=== PATIENT | female | born 1940 | race Caucasian/White ===

== ENCOUNTER 2016-11-07 11:21 | Outpatient (CLI) | payer MEDICARE, OTHER | END 2016-11-07 11:22 | disposition home or self-care (01) | DX: G47.30 Sleep apnea, unspecified (principal); R06.83 Snoring; G47.8 Other sleep disorders | CPT/HCPCS: 99215; G0463 ==

== ENCOUNTER 2016-12-31 19:17 | Outpatient (CLI) | payer MEDICARE, OTHER | END 2016-12-31 19:18 | disposition home or self-care (01) | DX: G47.33 Obstructive sleep apnea (adult) (pediatric) (principal); Z68.27 Body mass index [BMI] 27.0-27.9, adult ==

== ENCOUNTER 2017-01-24 11:11 | Outpatient (CLI) | payer MEDICARE, OTHER | END 2017-01-24 11:12 | disposition home or self-care (01) | DX: G47.33 Obstructive sleep apnea (adult) (pediatric) (principal) | CPT/HCPCS: 99214; G0463 ==

== ENCOUNTER 2017-02-13 12:13 | Outpatient (CLI) | payer MEDICARE, OTHER | END 2017-02-13 12:14 | disposition critical access hospital (66) | DX: R10.9 Unspecified abdominal pain (principal); R11.2 Nausea with vomiting, unspecified; R19.7 Diarrhea, unspecified | CPT/HCPCS: A0425; A0427 ==

== ENCOUNTER 2017-02-13 12:42 | Emergency (ER) | payer MEDICARE, OTHER ==
[2017-02-13] MEDS ORDERED: SODIUM CHLORIDE 0.9% 1,000 ML IV ONE (13:06)
[2017-02-13] MEDS ORDERED: LIDOCAINE VISCOUS 2% 15 ML UDC MM STA (15:04)
[2017-02-13] MEDS ORDERED: MAG HYDROX/AL HYDROX/SIMETH 30 ML UDC PO STA (15:04)
[2017-02-13] MEDS ORDERED: FAMOTIDINE 20 MG/50 ML 50 ML IV ONE ×2 (15:04→15:26)
[2017-02-13] MEDS ORDERED: MAG HYDROX/AL HYDROX/SIMETH 30 ML UDC ONE (15:26)
[2017-02-13] MEDS ORDERED: LIDOCAINE VISCOUS 2% 15 ML UDC MM ONE (15:26)
== END 2017-02-13 16:54 | disposition home or self-care (01) ==
DX: R10.12 Left upper quadrant pain (principal); R11.2 Nausea with vomiting, unspecified; R19.7 Diarrhea, unspecified; K57.30 Diverticulosis of large intestine without perforation or abscess without bleeding; D72.829 Elevated white blood cell count, unspecified; R03.0 Elevated blood-pressure reading, without diagnosis of hypertension
CPT/HCPCS: 36415; 74176; 80053; 81003; 83690; 85025; 96361; 96374; 99284; A9270

== ENCOUNTER 2017-02-15 20:35 | Outpatient (CLI) | payer MEDICARE, OTHER | END 2017-02-15 20:36 | disposition home or self-care (01) | DX: G47.33 Obstructive sleep apnea (adult) (pediatric) (principal); G47.61 Periodic limb movement disorder; Z68.27 Body mass index [BMI] 27.0-27.9, adult ==

== ENCOUNTER 2017-03-06 14:16 | Outpatient (CLI) | payer MEDICARE, OTHER | END 2017-03-06 14:17 | disposition home or self-care (01) | DX: G47.33 Obstructive sleep apnea (adult) (pediatric) (principal) | CPT/HCPCS: 99214; G0463 ==

== ENCOUNTER 2017-05-10 10:31 | Outpatient (CLI) | payer MEDICARE, OTHER | END 2017-05-10 10:32 | disposition home or self-care (01) | LOC: SC 10:31 | PROVIDERS: ATTEND Nurse Practitioner Family | DX: G47.33 Obstructive sleep apnea (adult) (pediatric) (principal) | CPT/HCPCS: 99214; G0463; 99212 ==

== ENCOUNTER 2017-08-16 09:51 | Outpatient (CLI) | payer MEDICARE, OTHER | END 2017-08-16 09:52 | disposition home or self-care (01) | LOC: SC 09:51 | PROVIDERS: ATTEND Nurse Practitioner Family | DX: G47.33 Obstructive sleep apnea (adult) (pediatric) (principal) | CPT/HCPCS: 99214; G0463; 99212 ==

== ENCOUNTER 2017-08-28 18:06 | Emergency (ER) | payer MEDICARE, OTHER ==
[2017-08-28] MEDS ORDERED: SODIUM CHLORIDE 0.9% 1,000 ML IV ONE (18:32)
--- NOTE | 2017-08-28 18:42 | ED Physician Documentation ---
History of Present Illness - Stated complaint Stated Complaint: DIZZY - Chief complaint Chief Complaint: Neuro - History obtained from History obtained from: Patient, EMS - History of Present Illness Timing: Today Pain level max: 0 Pain level now: 0 Improved by: rest Worsened by: moving - Additonal information Additional information: Patient states that she has been feeling lightheaded and dizzy today. States this normally resolves with IVF. Denies HENRY, chest pain, shortness of breath, abdominal pain. Review of Systems Ten Systems: 10 systems reviewed and negative Constitutional: denies: Fever, Chills Nose: denies: Rhinorrhea / runny nose, Congestion Throat: denies: Sore throat Cardiac: denies: Chest pain / pressure Respiratory: denies: Cough GI: reports: Nausea. 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 HEENT: None Psych: None Musculoskeletal: None Derm: None - Past Surgical History Past Surgical History: Yes General: Appendectomy HEENT: Tonsil/Adenoidectomy - Present Medications Home Medications: Ambulatory Orders Medication Instructions Recorded Confirmed Naltrexone HCl 3 mg PO DAILY 02/20/15 08/28/17 raNITIdine [Zantac] 150 mg PO BID #60 tablet 02/13/17 08/28/17 - Allergies Allergies/Adverse Reactions: Allergies Allergy/AdvReac Type Severity Reaction Status Date / Time Antihistamines - Alkylamine Allergy Rash Verified 02/20/15 00:40 Penicillins Allergy unknown Verified 02/20/15 00:40 - Social History Does the pt smoke?: No Smoking Status: Never smoker Does the pt drink ETOH?: Yes ETOH Use: Liquor Does the pt have substance abuse?: No - Immunizations Immunizations are current?: Yes - POLST Patient has POLST: Yes PD ED PE NORMAL - Vitals Vital signs reviewed: Yes - General General: Alert and oriented X 3, No acute distress - HEENT HEENT: PERRL, EOMI, Ears normal, Moist mucous membranes, Pharynx benign - Neck Neck: Supple, no meningeal sign, No adenopathy, No JVD - Cardiac Cardiac: RRR - Respiratory Respiratory: No respiratory distress, Clear bilaterally - Abdomen Abdomen: Soft, Non tender, Non distended - Back Back: No spinal TTP - Derm Derm: Warm and dry, No rash - Extremities Extremities: No edema, No calf tenderness / cord, Other (normal gait) - Neuro Neuro: Alert and oriented X 3, 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, No motor deficit, No sensory deficit, Normal speech - Psych Psych: Normal mood, Normal affect Results - Vitals Vitals: Vital Signs - 24 hr 08/28/17 08/28/17 08/28/17 18:12 18:44 19:03 Temperature 36.6 C Heart Rate 94 80 Respiratory 16 16 Rate Blood Pressure 140/70 H 143/64 H O2 Saturation 99 98 08/28/17 22:51 Temperature Heart Rate 78 Respiratory 16 Rate Blood Pressure 136/75 H O2 Saturation 99 Oxygen O2 Source Room air - EKG (time done) 1844 Rate: Rate (enter#) (64) Rhythm: NSR [place]: Normal Intervals: Normal ID QRS: Normal Ischemia: Normal ST segments Computer interpretation: Agree with computer - Labs Labs: Laboratory Tests 08/28/17 08/28/17 08/28/17 18:15 19:08 21:39 WBC 6.9 RBC 4.08 L Hgb 13.1 Hct 38.5 MCV 94.4 MCH 32.1 H MCHC 34.1 RDW 13.1 Plt Count 256 MPV 7.5 L Neut # 4.2 Lymph # 2.0 [place] # 0.5 Eos # 0.1 Baso # 0.1 Absolute Nucleated RBC 0.00 Nucleated RBC % 0.0 Sodium 134 L Potassium 3.8 Chloride 101 Carbon Dioxide 24 Anion Gap 9.0 BUN 15 Creatinine 0.9 Estimated GFR (MDRD) 61 L Glucose 113 H Calcium 9.1 Total Bilirubin 0.4 AST 22 ALT 20 Alkaline Phosphatase 58 Total Protein 6.8 Albumin 4.2 Globulin 2.6 Albumin/Globulin Ratio 1.6 Lipase 33 Urine Color YELLOW Urine Clarity CLEAR Urine pH 6.0 Ur Specific [place] <=1.005 Urine Protein NEGATIVE Urine Glucose (UA) NEGATIVE Urine Ketones NEGATIVE Urine Occult Blood NEGATIVE Urine Nitrite NEGATIVE Urine Bilirubin NEGATIVE Urine Urobilinogen 0.2 (NORMAL) Ur Leukocyte Esterase NEGATIVE Ur Microscopic Review NOT INDICATED Urine Culture Comments NOT INDICATED PD MEDICAL DECISION MAKING - ED course Complexity details: reviewed old records, reviewed results, re-evaluated patient , considered differential, d/w patient, d/w family ED course: Patient is a 76-year-old female who presents to the emergency department with lightheadedness and dizziness today. Mild nausea. Resolved with Zofran. Tolerating p.o. without difficulty. Feels better after IV fluids. Found to have mild hyponatremia as well. This should increase with her IV fluids. She is very well-appearing, nontoxic. Normal neurological exam. No evidence of stroke, tumor, mass. Patient and family counseled regarding signs and symptoms for which I believe and urgent re-evaluation would be necessary. Patient with good understanding of and agreement to plan and is comfortable going home at this time This document was made in part using voice recognition software. While efforts are made to proofread this document, sound alike and grammatical errors may occur. Departure - Departure Disposition: 01 Home, Self Care Clinical Impression: Dehydration, Hyponatremia Condition: Good Instructions: ED Dehydration Follow-Up: Mounika Hughes PA [Primary Care Provider] - Within 1 week Comments: Drink plenty of fluids. Return if you worsen. Discharge Date/Time: 08/28/17 22:52
[2017-08-28 19:22] LABS: BASOPHILS # (AUTO) 0.1 10^3/uL (0.0-0.1); BASOPHILS % (AUTO) 1.8 %; EOSINOPHILS # (AUTO) 0.1 10^3/uL (0.0-0.7); EOSINOPHILS % (AUTO) 1.1 %; HCT - HEMATOCRIT 38.5 % (37.0-47.0); HGB - HEMOGLOBIN 13.1 g/dL (12.0-16.0); LYMPHOCYTES % (AUTO) 28.6 %; MEAN CORPUSCULAR HEMOGLOBIN 32.1 pg (27.0-31.0); MEAN CORPUSCULAR HGB CONC 34.1 g/dL (32.0-36.0); MEAN CORPUSCULAR VOLUME 94.4 fL (81.0-99.0); MEAN PLATELET VOLUME 7.5 fL (7.9-10.8); MONOCYTES # (AUTO) 0.5 10^3/uL (0.0-1.0); MONOCYTES % (AUTO) 7.7 %; NEUTROPHILS # (AUTO) 4.2 10^3/uL (1.5-6.6); NEUTROPHILS % (AUTO) 60.8 %; RED BLOOD COUNT 4.08 10^6/uL (4.20-5.40); RED CELL DISTRIBUTION WIDTH 13.1 % (12.0-15.0); UNCORRECTED WHITE BLOOD COUNT 6.9 x10^3/uL; WHITE BLOOD COUNT 6.9 x10^3/uL (4.8-10.8)
[2017-08-28] MEDS ORDERED: ONDANSETRON ODT 4 MG TABLET TL STA (20:40)
[2017-08-28] MEDS ORDERED: ONDANSETRON ODT 4 MG TABLET ONE (20:53)
[2017-08-28] MEDS ORDERED: ONDANSETRON 4 MG/2 ML VIAL IVP STA (21:42)
[2017-08-28] MEDS ORDERED: ONDANSETRON 4 MG/2 ML VIAL ONE (21:46)
[2017-08-28 21:50] LABS: BILIRUBIN,URINE NEGATIVE (NEGATIVE); UA CHARGE (STRIP ONLY) YES; UR CULTURE IF IND NOT INDICATED
[2017-08-28 21:58] LABS: ALBUMIN/GLOBULIN RATIO 1.6 (1.0-2.2); BILIRUBIN,TOTAL 0.4 mg/dL (0.2-1.0); CALCIUM 9.1 mg/dL (8.5-10.3); CREATININE 0.9 mg/dL (0.4-1.0); POTASSIUM 3.8 mmol/L (3.5-5.0); TOTAL PROTEIN 6.8 g/dL (6.7-8.2)
[2017-08-28 22:51] VITALS: BP 136/75
== END 2017-08-28 22:52 | disposition home or self-care (01) ==
LOC: EDUNIT# → ED 18:06
DX: E86.0 Dehydration (principal); E87.1 Hypo-osmolality and hyponatremia; R94.31 Abnormal electrocardiogram [ECG] [EKG]
CPT/HCPCS: 36415; 80053; 81003; 83690; 85025; 93005; 96361; 96374; 99283; 99284; Q0162; 81001; 87086

== ENCOUNTER 2017-09-29 12:22 | Emergency (ER) | payer MEDICARE, OTHER ==
--- NOTE | 2017-09-29 13:06 | ED Physician Documentation ---
PD HPI URI - Stated complaint Stated Complaint: WEAKNESS - Chief complaint Chief Complaint: Resp - History obtained from History obtained from: Patient - History of Present Illness Timing - onset: How many weeks ago (1) Timing duration: Weeks (1) Timing details: Gradual onset, Still present Associated symptoms: Fever, Nasal congestion, Dry cough, Dyspnea. No: NVD, Bilateral edema Contributing factors: No: Sick contact, Travel, Immunocompromised Similar symptoms before: Diagnosis (pneumohia) Recently seen: Not recently seen Review of Systems Constitutional: reports: Fever, Chills, Myalgias Nose: reports: Rhinorrhea / runny nose, Congestion Throat: denies: Sore throat Respiratory: reports: Dyspnea, Cough. denies: Wheezing GI: reports: Nausea. 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 HEENT: None Psych: None Musculoskeletal: None Derm: None - Past Surgical History Past Surgical History: Yes General: Appendectomy HEENT: Tonsil/Adenoidectomy - Present Medications Home Medications: Ambulatory Orders Medication Instructions Recorded Confirmed Dexamethasone [Decadron] 4 mg PO DAILY #5 tablet 09/29/17 10/01/17 Ondansetron Odt [Zofran] 4 mg TL Q6H PRN #15 tablet 09/29/17 10/01/17 Tramadol HCl 50 mg PO Q6H PRN #15 tablet 09/29/17 10/01/17 - Allergies Allergies/Adverse Reactions: Allergies Allergy/AdvReac Type Severity Reaction Status Date / Time Antihistamines - Alkylamine Allergy Rash Verified 10/01/17 11:40 Penicillins Allergy unknown Verified 10/01/17 11:40 - Social History Does the pt smoke?: No Smoking Status: Never smoker Does the pt drink ETOH?: Yes Does the pt have substance abuse?: No - Immunizations Immunizations are current?: Yes - POLST Patient has POLST: Yes PD ED PE NORMAL - Vitals Vital signs reviewed: Yes - General General: Alert and oriented X 3, No acute distress, Well developed/nourished - HEENT HEENT: Ears normal, Pharynx benign - Neck Neck: Supple, no meningeal sign, No adenopathy - Cardiac Cardiac: RRR, No murmur - Respiratory Respiratory: Clear bilaterally - Abdomen Abdomen: Soft, Non tender - Back Back: No CVA TTP - Derm Derm: Normal color - Extremities Extremities: No deformity, No tenderness to palpate, Normal ROM s pain, No edema , No calf tenderness / cord - Neuro Neuro: Alert and oriented X 3, No motor deficit, Normal speech Results - Vitals Vitals: Oxygen O2 Source Room air - Labs Labs: Laboratory Tests 09/29/17 12:55 Influenza A (Rapid) Negative Influenza B (Rapid) Negative Influenza Types A,B Ag - - Rads (name of study) chest Radiology: Prelim report reviewed (some atelectasis left angle. no else acute. ) PD MEDICAL DECISION MAKING - ED course Complexity details: considered differential (flu like symptoms without looking spetic. ), d/w patient Departure - Departure Disposition: 01 Home, Self Care Clinical Impression: Flu-like symptoms Condition: Stable Record reviewed to determine appropriate education?: Yes Instructions: ED Upper Resp Infec No Abx Tx Follow-Up: Mounika Hughes PA [Primary Care Provider] - Prescriptions: Dexamethasone [Decadron] 4 mg PO DAILY #5 tablet Ondansetron Odt [Zofran] 4 mg TL Q6H PRN #15 tablet PRN Reason: Nausea / Vomiting Tramadol HCl 50 mg PO Q6H PRN #15 tablet PRN Reason: Pain Comments: This sounds like a viral illness, your flu test is negative but is still sounds flulike. I would have you drink lots of fluids. Use Tylenol if needed for fevers or pains. Decadron steroid anti-inflammatory daily for 5 days will help a lot of the symptoms. Ondansetron if needed for nausea. Add tramadol if needed for worse pains and aches. You can continue the antibiotic your pharmacy assistant prescribed. Recheck if not improving over the next few days and return sooner if worse. Discharge Date/Time: 09/29/17 15:16
[2017-09-29] MEDS ORDERED: ONDANSETRON ODT 4 MG TABLET TL STA (13:16)
[2017-09-29] MEDS ORDERED: ACETAMINOPHEN 325 MG TABLET PO STA (13:16)
[2017-09-29] MEDS ORDERED: DEXAMETHASONE 10 MG/ML VIAL PO STA (13:16)
[2017-09-29] MEDS ORDERED: SODIUM CHLORIDE 0.9% 1,000 ML IV ONE (13:23)
[2017-09-29] MEDS ORDERED: ONDANSETRON ODT 4 MG TABLET ONE (13:31)
[2017-09-29] MEDS ORDERED: ACETAMINOPHEN 325 MG TABLET PO ONE (13:31)
[2017-09-29] MEDS ORDERED: DEXAMETHASONE 10 MG/ML VIAL ONE (13:31)
--- NOTE | 2017-09-29 14:05 | XRAY Preliminary Report ---
Exam: XR CHEST 2 VIEW PA/LAT IMPRESSION: LEFT CP angle atelectasis. No other acute disease. [facility] SITE ID: [id number]
--- NOTE | 2017-09-29 14:07 | XRAY Report ---
EXAM: CHEST RADIOGRAPHY EXAM DATE: 09/29/2017 01:57 PM. CLINICAL HISTORY: Cough and dyspnea. COMPARISON: 11/22/2015. TECHNIQUE: 2 views. FINDINGS: Lungs/Pleura: Mild hyperexpansion with flattened diaphragm and coarse lung markings typical of COPD. Localized atelectasis in the left costophrenic angle. No definite acute infiltrate, consolidation, ef fusion, or pneumothorax. Mediastinum: Heart and mediastinal contours are unremarkable. Upper lobe vessels not distended. Other: Degenerative changes. IMPRESSION: LEFT CP angle atelectasis. No other acute disease. [facility] Referring Provider Line: [phone] SITE ID: [id number]
[2017-09-29] MEDS ORDERED: KETOROLAC 60 MG/2 ML VIAL IVP STA (14:30)
[2017-09-29] MEDS ORDERED: KETOROLAC 15 MG/ML VIAL ONE (14:40)
[2017-09-29 15:13] VITALS: BP 125/61
== END 2017-09-29 15:16 | disposition home or self-care (01) ==
LOC: ED 12:22
DX: M79.1 Myalgia (principal)
CPT/HCPCS: 36415; 71020; 87275; 87276; 93005; 96374; 99284; A9270; Q0162

== ENCOUNTER 2017-10-01 11:32 | Emergency (ER) | payer MEDICARE, OTHER ==
[2017-10-01 13:35] LABS: BASOPHILS % (AUTO) 0.8 %; HCT - HEMATOCRIT 38.8 % (37.0-47.0); HGB - HEMOGLOBIN 13.3 g/dL (12.0-16.0); LYMPHOCYTES # (AUTO) 0.9 10^3/uL (1.5-3.5); LYMPHOCYTES % (AUTO) 23.7 %; MEAN CORPUSCULAR HEMOGLOBIN 32.3 pg (27.0-31.0); MEAN CORPUSCULAR HGB CONC 34.4 g/dL (32.0-36.0); MEAN PLATELET VOLUME 7.3 fL (7.9-10.8); MONOCYTES # (AUTO) 0.6 10^3/uL (0.0-1.0); MONOCYTES % (AUTO) 15.8 %; NEUTROPHILS # (AUTO) 2.2 10^3/uL (1.5-6.6); NEUTROPHILS % (AUTO) 59.7 %; NUCLEATED RED BLOOD CELLS AUTO 0.1 /100WBC; RED BLOOD COUNT 4.13 10^6/uL (4.20-5.40); RED CELL DISTRIBUTION WIDTH 12.7 % (12.0-15.0); UNCORRECTED WHITE BLOOD COUNT 3.7 x10^3/uL; WHITE BLOOD COUNT 3.7 x10^3/uL (4.8-10.8)
[2017-10-01 13:43] LABS: BILIRUBIN,TOTAL 0.4 mg/dL (0.2-1.0); POTASSIUM 4.3 mmol/L (3.5-5.0); TOTAL PROTEIN 6.7 g/dL (6.7-8.2)
[2017-10-01 13:44] LABS: ALBUMIN/GLOBULIN RATIO 1.4 (1.0-2.2)
--- NOTE | 2017-10-01 14:16 | ED Physician Documentation ---
History of Present Illness <Ingris Conway - Last Filed: 10/01/17 19:44> <Kj Silva - Last Filed: 10/01/17 21:02> - Stated complaint Stated Complaint: FATIGUE/BODY PAIN/NAUSEA - Chief complaint Chief Complaint: Resp - Additonal information Additional information: 77-year-old female presents to the emergency department with ongoing symptoms of generalized fatigue and nausea. She reports a cough that is nonproductive of sputum. She reports that she has had symptoms for 3 weeks, however Had a period of improvement and then worsened again. She complains of generalized bloating and gas Pain but no localizing abdominal pain.She also complains of a frontal headache.She reports that yesterday she had a fever of 100.4. She has seen her naturopathic doctor twice in the past week and was told that she might have pneumonia and was prescribed an antibiotic. She has been taking this without improvement in her symptoms. She was seen in the emergency department 2 days ago for the symptoms and diagnosed with a viral illness. At that time she had a x-ray of her abdomen, as well as chest. She did not take any of her regular medications today secondary to feeling nauseated and unwell. 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 HEENT: None Psych: None Musculoskeletal: None Derm: None - Past Surgical History Past Surgical History: Yes General: Appendectomy HEENT: Tonsil/Adenoidectomy - Social History Does the pt smoke?: No Smoking Status: Never smoker Does the pt drink ETOH?: Yes Does the pt have substance abuse?: No - Immunizations Immunizations are current?: Yes - POLST Patient has POLST: Yes <Ingris Conway - Last Filed: 10/01/17 19:44> <Kj Silva - Last Filed: 10/01/17 21:02> - Present Medications Home Medications: Ambulatory Orders Medication Instructions Recorded Confirmed Dexamethasone [Decadron] 4 mg PO DAILY #5 tablet 09/29/17 10/01/17 Ondansetron Odt [Zofran] 4 mg TL Q6H PRN #15 tablet 09/29/17 10/01/17 Tramadol HCl 50 mg PO Q6H PRN #15 tablet 09/29/17 10/01/17 - Allergies Allergies/Adverse Reactions: Allergies Allergy/AdvReac Type Severity Reaction Status Date / Time Antihistamines - Alkylamine Allergy Rash Verified 10/01/17 11:40 Penicillins Allergy unknown Verified 10/01/17 11:40 PD ED PE NORMAL - Vitals Vital signs reviewed: Yes - General General: Alert and oriented X 3, No acute distress - HEENT HEENT: PERRL - Neck Neck: Supple, no meningeal sign - Cardiac Cardiac: RRR, No murmur - Respiratory Respiratory: Clear bilaterally - Abdomen Abdomen: Normal bowel sounds, Soft, Other (mild distension, mild discomfort with palpation, no distension) - Derm Derm: Warm and dry, Other (no lower extremity edema ) - Extremities Extremities: No deformity - Neuro Neuro: Alert and oriented X 3 - Psych Psych: Other (affect somewhat flat vs. fatigued) <Ingris Conway - Last Filed: 10/01/17 19:44> Results - EKG (time done) 1308 Rate: Rate (enter#) (77) Rhythm: NSR [place]: Normal Intervals: Normal [place]. No: Prolonged QT QRS: Normal Ischemia: Normal ST segments Other comments: Other comments Compare to prior EKG: Changed from prior EKG (q wave in V2 new from 09/29) 1559 Rate: Rate (enter#) (71) Rhythm: NSR QRS: Normal Ischemia: Normal ST segments Compare to prior EKG: Unchanged from prior EKG - Rads (name of study) Chest x-ray Radiology: Other (Mild bibasilar atelectasis/infiltrate left greater than right) <Ingris Conway - Last Filed: 10/01/17 19:44> - Vitals Vitals: Vital Signs - 24 hr 10/01/17 10/01/17 10/01/17 11:36 12:52 14:02 Temperature 37.1 C 36.8 C Heart Rate 85 71 93 Respiratory 16 14 15 Rate Blood Pressure 131/75 H 148/78 H 116/81 H O2 Saturation 95 95 100 10/01/17 10/01/17 10/01/17 14:20 14:27 16:00 Temperature Heart Rate 89 48 L Respiratory Rate Blood Pressure 140/62 H O2 Saturation 87 L 94 88 L 10/01/17 10/01/17 10/01/17 16:06 16:34 17:14 Temperature Heart Rate 73 68 66 Respiratory 18 20 16 Rate Blood Pressure 125/69 126/71 113/70 O2 Saturation 96 98 95 10/01/17 10/01/17 10/01/17 18:49 19:40 20:54 Temperature Heart Rate 68 66 69 Respiratory 18 14 15 Rate Blood Pressure 124/72 155/76 H 125/67 O2 Saturation 96 92 91 L Oxygen O2 Source Nasal cannula - Labs Labs: Laboratory Tests 10/01/17 10/01/17 10/01/17 11:51 11:51 11:51 WBC 3.7 L RBC 4.13 L Hgb 13.3 Hct 38.8 MCV 94.0 MCH 32.3 H MCHC 34.4 RDW 12.7 Plt Count 213 MPV 7.3 L Neut # 2.2 Lymph # 0.9 L [place] # 0.6 Eos # 0.0 Baso # 0.0 Absolute Nucleated RBC 0.00 Nucleated RBC % 0.1 D-Dimer Sodium 135 Potassium 4.3 Chloride 95 L Carbon Dioxide 28 Anion Gap 12.0 BUN 14 Creatinine 1.0 Estimated GFR (MDRD) 54 L Glucose 89 POC Whole Bld Glucose Lactic Acid Calcium 9.0 Total Bilirubin 0.4 AST 49 H ALT 53 Alkaline Phosphatase 53 Total Creatine Kinase Troponin I B-Natriuretic Peptide Total Protein 6.7 Albumin 3.9 Globulin 2.8 Albumin/Globulin Ratio 1.4 Lipase 32 TSH 1.36 Urine Color Urine Clarity Urine pH Ur Specific [place] Urine Protein Urine Glucose (UA) Urine Ketones Urine Occult Blood Urine Nitrite Urine Bilirubin Urine Urobilinogen Ur Leukocyte Esterase Ur Microscopic Review Urine Culture Comments 10/01/17 10/01/17 10/01/17 11:51 11:51 11:51 WBC RBC Hgb Hct MCV MCH MCHC RDW Plt Count MPV Neut # Lymph # [place] # Eos # Baso # Absolute Nucleated RBC Nucleated RBC % D-Dimer 486.0 H Sodium Potassium Chloride Carbon Dioxide Anion Gap BUN Creatinine Estimated GFR (MDRD) Glucose POC Whole Bld Glucose Lactic Acid Calcium Total Bilirubin AST ALT Alkaline Phosphatase Total Creatine Kinase 125 Troponin I B-Natriuretic Peptide 56 Total Protein Albumin Globulin Albumin/Globulin Ratio Lipase TSH Urine Color Urine Clarity Urine pH Ur Specific [place] Urine Protein Urine Glucose (UA) Urine Ketones Urine Occult Blood Urine Nitrite Urine Bilirubin Urine Urobilinogen Ur Leukocyte Esterase Ur Microscopic Review Urine Culture Comments 10/01/17 10/01/17 10/01/17 13:24 13:24 13:51 WBC RBC Hgb Hct MCV MCH MCHC RDW Plt Count MPV Neut # Lymph # [place] # Eos # Baso # Absolute Nucleated RBC Nucleated RBC % D-Dimer Sodium Potassium Chloride Carbon Dioxide Anion Gap BUN Creatinine Estimated GFR (MDRD) Glucose POC Whole Bld Glucose Lactic Acid 0.8 Calcium Total Bilirubin AST ALT Alkaline Phosphatase Total Creatine Kinase Troponin I < 0.04 B-Natriuretic Peptide Total Protein Albumin Globulin Albumin/Globulin Ratio Lipase TSH Urine Color YELLOW Urine Clarity CLEAR Urine pH 6.0 Ur Specific [place] 1.015 Urine Protein NEGATIVE Urine Glucose (UA) NEGATIVE Urine Ketones NEGATIVE Urine Occult Blood NEGATIVE Urine Nitrite NEGATIVE Urine Bilirubin NEGATIVE Urine Urobilinogen 0.2 (NORMAL) Ur Leukocyte Esterase NEGATIVE Ur Microscopic Review NOT INDICATED Urine Culture Comments NOT INDICATED 10/01/17 10/01/17 16:04 16:19 WBC RBC Hgb Hct MCV MCH MCHC RDW Plt Count MPV Neut # Lymph # [place] # Eos # Baso # Absolute Nucleated RBC Nucleated RBC % D-Dimer Sodium Potassium Chloride Carbon Dioxide Anion Gap BUN Creatinine Estimated GFR (MDRD) Glucose POC Whole Bld Glucose 108 H Lactic Acid Calcium Total Bilirubin AST ALT Alkaline Phosphatase Total Creatine Kinase Troponin I < 0.04 B-Natriuretic Peptide Total Protein Albumin Globulin Albumin/Globulin Ratio Lipase TSH Urine Color Urine Clarity Urine pH Ur Specific [place] Urine Protein Urine Glucose (UA) Urine Ketones Urine Occult Blood Urine Nitrite Urine Bilirubin Urine Urobilinogen Ur Leukocyte Esterase Ur Microscopic Review Urine Culture Comments PD MEDICAL DECISION MAKING <Ingris Conway - Last Filed: 10/01/17 19:44> - ED course Complexity details: reviewed old records, reviewed results, considered differential, d/w patient, d/w family <jK Silva - Last Filed: 10/01/17 21:02> - ED course ED course: 77-year-old female with vague complaints of generalized fatigue and cough and nausea. Her abdominal exam is benign. Laboratory workup is unrevealing including a TSH. While in the emergency department patient required 2 L Nasal cannula. A d-dimer and a BNP were ordered. D-dimer was elevated and a CT of the chest was performed. 1602 Called to patient's bedside upon return from x-ray patient has developed nausea and chest discomfort. On arrival to the mount room patient Has decreased mental status arousable with tactile stimulation, diaphoretic. Patient is heart rate decreased to 40s.Blood pressure not obtained until patient heart rate had improved, she had a carotid pulse but not radial pulse when she was bradycardic.She reports that she has actually had chest discomfort intermittently for the last 2 days, is unable to describe how long it lasts.Had not previously communicated this to me. A repeat EKG was obtained and unchanged from earlier today. Q-wave in V1 and V2. [address] of the chest reveals no pulmonary embolus aortic aneurysm or aortic dissection. Borderline cardiac cardiomegaly and coronary artery atherosclerosis, no CHF. 184 Discussed patient's case with Dr. Strong at [facility] cardiology. I discussed with him patient's event of Chest pain, nausea, diaphoresis with low heart rate. He feels that patient may be transferred to their facility or alternatively could have telemetry for 24 hours, and stress test for her chest pain given that she has no EKG changes and Has 2 negative troponin. He recommended discussing with hospitalist at this institution their comfort level and notifying him of outcome. 191 Discussed patient's change in V2 to q wave from 2 days ago. Accepts transfer, does not recommend heparin at this time, recommends discussion with hospitalist. Discussed with Dr. Roberson who accepts patient. Son and patient updated to plan of care. (Ingris Conway) 77-year-old female whose care is turned over to me at the end of Dr. Conway's shift for completion of transfer agreement. The family has made a request that the patient be transferred to [place]. I have gone in and examined the patient and found that she does have bibasilar rhonchi on exam and oxygen saturation in the low 90s at rest. She does have a history consistent with recurrent chest pain radiating to her neck and shortness of breath associated. Today in the emergency department she had a near syncopal episode and transfer is sought. Dr. Jordan has graciously accepted the patient at [facility] in [place]. ( Kj Silva) Departure <Ingris Conway - Last Filed: 10/01/17 19:44> <Kj Silva - Last Filed: 10/01/17 21:02> - Departure Disposition: 02 Transfer Acute Care Hosp Clinical Impression: Near syncope Chest pain Qualifiers: Chest pain type: unspecified Qualified Code(s): R07.9 - Chest pain, unspecified
[2017-10-01] MEDS ORDERED: ONDANSETRON 4 MG/2 ML VIAL IVP STA ×2 (14:53→21:09)
[2017-10-01] MEDS ORDERED: SODIUM CHLORIDE 0.9% 500 ML IV ONE (14:53)
[2017-10-01 15:06] LABS: BILIRUBIN,URINE NEGATIVE (NEGATIVE)
[2017-10-01 15:08] LABS: UA CHARGE (STRIP ONLY) YES; UR CULTURE IF IND NOT INDICATED
[2017-10-01] MEDS ORDERED: ONDANSETRON 4 MG/2 ML VIAL ONE ×2 (15:41→21:17)
[2017-10-01] MEDS ORDERED: KETOROLAC 30 MG/ML VIAL IVP STA (15:49)
--- NOTE | 2017-10-01 16:08 | XRAY Preliminary Report ---
Exam: XR CHEST 2 VIEW PA/LAT IMPRESSION: Mild bibasilar atelectasis/infiltrate, left greater than right. [facility] SITE ID: [id number]
--- NOTE | 2017-10-01 16:10 | XRAY Report ---
EXAM: CHEST RADIOGRAPHY EXAM DATE: 10/01/2017 03:55 PM. CLINICAL HISTORY: Cough. Chest pain and shortness of breath. COMPARISON: 09/29/2017. TECHNIQUE: 2 views. FINDINGS: Lungs/Pleura: Streaky bibasilar opacities, left greater than right. No pleural effusion. No pneumotho rax. Normal volumes. Mediastinum: Heart and mediastinal contours are unremarkable. Other: No compression fractures. IMPRESSION: Mild bibasilar atelectasis/infiltrate, left greater than right. [facility] Referring Provider Line: [phone] SITE ID: [id number]
[2017-10-01] MEDS ORDERED: KETOROLAC 15 MG/ML VIAL ONE (16:31)
[2017-10-01] MEDS ORDERED: IOPAMIDOL-300 100 ML VIAL ONE (17:16)
[2017-10-01] MEDS ORDERED: IOPAMIDOL-300 100 ML VIAL IVP ONE ×2 (17:45)
--- NOTE | 2017-10-01 18:11 | CT Preliminary Report ---
Exam: CT CHEST ANGIO (PE) IMPRESSION: 1. No evidence of pulmonary embolus, aortic aneurysm or aortic dissection. 2. Bilateral lower lobe scar/atelectasis. No acute consolidation. No vascular congestion. 3. Borderline cardiomegaly. Coronary artery atherosclerosis. [facility] SITE ID: [id number]
--- NOTE | 2017-10-01 18:28 | CT Report ---
EXAM: CT ANGIOGRAM CHEST EXAM DATE: 10/01/2017 05:45 PM. CLINICAL HISTORY: Chest pain, cough, elevated D-dimer. COMPARISON: 10/01/2017. 09/29/2017. TECHNIQUE: Routine helical imaging was performed through the chest in the pulmonary arterial phase. I V Contrast: 100 mL of Isovue-300. Reconstructions: Coronal 3-D MIP reconstructions.Sagittal and coron al. In accordance with CT protocol optimization, one or more of the following dose reduction techniques w ere utilized for this exam: automated exposure control, adjustment of mA and/or KV based on patient s ize, or use of iterative reconstructive technique. FINDINGS: Pulmonary Arteries: Diagnostic quality: Adequate through the segmental arteries. No evidence for acute or chronic pulmona ry emboli. Lungs/Pleura: Right middle and right lower lobe and bilateral lower lobe scar/atelectasis. Mild bilat eral lower lobe bronchial dilatation. No vascular congestion. No endobronchial obstruction. No parenc hymal cavities. Mediastinum: Included portions of the thyroid gland are unremarkable. Subcentimeter mediastinal and h ilar lymph nodes are seen, the largest measuring 8-9 mm in short axis dimension. Heart size is upper normal. Coronary artery calcifications are seen. Small hiatal hernia. Trace paracardial effusion. No evidence for left atrial appendage thrombus. Thoracic Aorta: Normal caliber thoracic aorta. No dissection or aneurysm. Upper Abdomen: Included portions of the liver, gallbladder, pancreas, spleen adrenals and left kidney are unremarkable. Other: Degenerative changes of the thoracic spine. No acute osseous abnormalities are identified. IMPRESSION: 1. No evidence of pulmonary embolus, aortic aneurysm or aortic dissection. 2. Bilateral lower lobe scar/atelectasis. No acute consolidation. No vascular congestion. 3. Borderline cardiomegaly. Coronary artery atherosclerosis. [facility] Referring Provider Line: [phone] SITE ID: [id number]
[2017-10-01] MEDS ORDERED: ASPIRIN 325 MG TABLET PO STA (19:08)
[2017-10-01] MEDS ORDERED: ASPIRIN 325 MG TABLET PO ONE (19:33)
[2017-10-01 20:55] VITALS: BP 125/67
== END 2017-10-01 22:07 | disposition short-term general hospital (02) ==
LOC: ED 11:32
DX: R55 Syncope and collapse (principal); R07.9 Chest pain, unspecified; K21.9 Gastro-esophageal reflux disease without esophagitis
CPT/HCPCS: 36415; 71020; 71275; 80053; 81003; 82550; 83605; 83690; 83880; 84443; 84484; 85025; 85379; 93005; 96361; 96374; 96375; 96376; 99285; A9270; Q9967; 81001; 87086

== ENCOUNTER 2017-10-01 21:55 | Outpatient (CLI) | payer MEDICARE, OTHER | END 2017-10-01 21:56 | disposition short-term general hospital (02) | LOC: EMS 21:55 | PROVIDERS: ATTEND Surgery | DX: R07.9 Chest pain, unspecified (principal); R55 Syncope and collapse | CPT/HCPCS: A0170; A0425; A0426 ==

== ENCOUNTER 2017-10-18 19:07 | Emergency (ER) | payer MEDICARE, OTHER ==
[2017-10-18] MEDS ORDERED: SODIUM CHLORIDE 0.9% 1,000 ML IV ONE (19:55)
[2017-10-18] MEDS ORDERED: ALBUTEROL NEB 2.5 MG/3 ML INH STA (19:59)
--- NOTE | 2017-10-18 20:02 | ED Physician Documentation ---
History of Present Illness - Stated complaint Stated Complaint: SOA/BODY ACHES - Chief complaint Chief Complaint: General - History obtained from History obtained from: Patient, Family - History of Present Illness Timing: Other (77-year-old woman who is usually relatively healthy was ill at the beginning of the month with what turned out to be influenza. She had a few visits here for nonspecific symptoms. During that time it looks like her EKG suddenly changed and there was concern for cardiac etiology plus she had a syncopal episode. She was transferred to [place] where according to her she did have a positive flu test although the flu test here was negative and she had a negative stress test. She was discharged on Tamiflu and later put on azithromycin by her primary care physician. She is done with that and was slowly getting better but over the last 24 hours is gotten worse again with shortness of breath, minimal nonproductive cough, runny nose, and severe body aches. She has not had any measured fevers.) Review of Systems Constitutional: reports: Chills, Myalgias. denies: Fever Ears: denies: Ear pain Nose: reports: Rhinorrhea / runny nose. 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 : None HEENT: None Psych: None Musculoskeletal: None Derm: None - Past Surgical History Past Surgical History: Yes General: Appendectomy HEENT: Tonsil/Adenoidectomy - Present Medications Home Medications: Ambulatory Orders Medication Instructions Recorded Confirmed Albuterol Sulfate [Proventil Hfa 1 - 2 puffs IH Q4H PRN #1 10/18/17 Inhaler] hfa.aer.ad - Allergies Allergies/Adverse Reactions: Allergies Allergy/AdvReac Type Severity Reaction Status Date / Time Antihistamines - Alkylamine Allergy Rash Verified 10/18/17 19:16 Penicillins Allergy unknown Verified 10/18/17 19:16 oxycodone AdvReac Respiratory Verified 10/18/17 19:20 propofol AdvReac Dizziness Verified 10/18/17 19:21 - Social History Does the pt smoke?: No Smoking Status: Never smoker Does the pt drink ETOH?: Yes Does the pt have substance abuse?: No - Immunizations Immunizations are current?: Yes - POLST Patient has POLST: Yes PD ED PE NORMAL - Vitals Vital signs reviewed: Yes - General General: Alert and oriented X 3, No acute distress - HEENT HEENT: PERRL, EOMI, Ears normal, Moist mucous membranes, Pharynx benign - Neck Neck: Supple, no meningeal sign, No bony TTP - Cardiac Cardiac: RRR, No murmur - Respiratory Respiratory: Other (Mild rhonchi at both bases, nonlabored) - Abdomen Abdomen: Soft, Non tender - Derm Derm: Normal color, Warm and dry - Extremities Extremities: No edema, No calf tenderness / cord - Neuro Neuro: Alert and oriented X 3, Normal speech - Psych Psych: Normal mood, Normal affect Results - Vitals Vitals: Vital Signs - 24 hr 10/18/17 10/18/17 10/18/17 19:13 20:27 20:29 Temperature 36.4 C L Heart Rate 69 64 71 Respiratory 20 11 L 16 Rate Blood Pressure 151/92 H 146/75 H O2 Saturation 100 99 10/18/17 21:25 Temperature Heart Rate 84 Respiratory 12 Rate Blood Pressure 131/72 H O2 Saturation 97 Oxygen O2 Source Room air - EKG (time done) 1916 Rate: Rate (enter#) (68) Rhythm: NSR [place]: Normal Intervals: Normal SC QRS: Normal Ischemia: Normal ST segments Computer interpretation: Agree with computer - Labs Labs: Laboratory Tests 10/18/17 10/18/17 10/18/17 20:10 20:10 20:10 WBC 5.6 RBC 4.03 L Hgb 12.7 Hct 37.9 MCV 94.1 MCH 31.6 H MCHC 33.6 RDW 12.7 Plt Count 303 MPV 7.0 L Neut # 3.7 Lymph # 1.4 L [place] # 0.5 Eos # 0.0 Baso # 0.1 Absolute Nucleated RBC 0.00 Nucleated RBC % 0.0 Sodium 137 Potassium 4.7 Chloride 101 Carbon Dioxide 25 Anion Gap 11.0 BUN 15 Creatinine 0.9 Estimated GFR (MDRD) 61 L Glucose 96 Calcium 9.6 Total Bilirubin 0.6 AST 27 ALT 26 Alkaline Phosphatase 53 Troponin I < 0.04 Total Protein 7.2 Albumin 3.9 Globulin 3.3 Albumin/Globulin Ratio 1.2 Lipase 38 Influenza A (Rapid) Influenza B (Rapid) Influenza Types A,B Ag 10/18/17 20:10 WBC RBC Hgb Hct MCV MCH MCHC RDW Plt Count MPV Neut # Lymph # [place] # Eos # Baso # Absolute Nucleated RBC Nucleated RBC % Sodium Potassium Chloride Carbon Dioxide Anion Gap BUN Creatinine Estimated GFR (MDRD) Glucose Calcium Total Bilirubin AST ALT Alkaline Phosphatase Troponin I Total Protein Albumin Globulin Albumin/Globulin Ratio Lipase Influenza A (Rapid) Negative Influenza B (Rapid) Negative Influenza Types A,B Ag - PD MEDICAL DECISION MAKING - ED course ED course: 77-year-old woman ill earlier this month with influenza presents with body aches , resolved diarrhea, dizziness. She responded well to IV fluids and albuterol here. Her workup was negative. And a long talk with her she has had a lot of recurrent symptoms which are attributed to Mnire's. She says she frequently has episodes of vertigo that are followed by feeling panicky and then she blacks out. She admits that she feels much better when paramedics are summoned even if they do not really do any specific intervention. And somebody at some point he given her Valium for this and when taking a Valium for the symptoms she feels like it works within seconds. I discussed with her that medically it takes Valium some time to work and the fact that she feels like it works within seconds corroborates that she is having panic attacks that respond to feeling like she is in control of her illness and this empowered her. Departure - Departure Disposition: 01 Home, Self Care Clinical Impression: Flu-like symptoms Condition: Good Record reviewed to determine appropriate education?: Yes Instructions: ED Viral Syndrome Follow-Up: Mounika Hughes PA [Primary Care Provider] - Prescriptions: Albuterol Sulfate [Proventil Hfa Inhaler] 1 - 2 puffs IH Q4H PRN #1 hfa.[email or web address] PRN Reason: Cough Comments: Call your doctor to arrange a follow-up appointment, make the next available appointment. In the interim, return anytime if worse or if new symptoms develop. Your blood pressure was elevated today on check into the emergency department. This does not mean that you have hypertension, it is a common phenomenon to come to the emergency department and have elevated blood pressure. I recommend that you see your primary care physician within the week to have it rechecked when you are feeling better. Discharge Date/Time: 10/18/17 21:45
[2017-10-18 20:21] LABS: BASOPHILS # (AUTO) 0.1 10^3/uL (0.0-0.1); BASOPHILS % (AUTO) 0.9 %; EOSINOPHILS % (AUTO) 0.6 %; HCT - HEMATOCRIT 37.9 % (37.0-47.0); HGB - HEMOGLOBIN 12.7 g/dL (12.0-16.0); LYMPHOCYTES # (AUTO) 1.4 10^3/uL (1.5-3.5); LYMPHOCYTES % (AUTO) 24.7 %; MEAN CORPUSCULAR HEMOGLOBIN 31.6 pg (27.0-31.0); MEAN CORPUSCULAR HGB CONC 33.6 g/dL (32.0-36.0); MEAN CORPUSCULAR VOLUME 94.1 fL (81.0-99.0); MONOCYTES # (AUTO) 0.5 10^3/uL (0.0-1.0); MONOCYTES % (AUTO) 8.1 %; NEUTROPHILS # (AUTO) 3.7 10^3/uL (1.5-6.6); NEUTROPHILS % (AUTO) 65.7 %; RED BLOOD COUNT 4.03 10^6/uL (4.20-5.40); RED CELL DISTRIBUTION WIDTH 12.7 % (12.0-15.0); UNCORRECTED WHITE BLOOD COUNT 5.6 x10^3/uL; WHITE BLOOD COUNT 5.6 x10^3/uL (4.8-10.8)
[2017-10-18 20:34] LABS: ALBUMIN/GLOBULIN RATIO 1.2 (1.0-2.2); BILIRUBIN,TOTAL 0.6 mg/dL (0.2-1.0); CALCIUM 9.6 mg/dL (8.5-10.3); CREATININE 0.9 mg/dL (0.4-1.0); POTASSIUM 4.7 mmol/L (3.5-5.0); TOTAL PROTEIN 7.2 g/dL (6.7-8.2)
--- NOTE | 2017-10-18 20:51 | XRAY Preliminary Report ---
Exam: XR CHEST 2 VIEW PA/LAT IMPRESSION: Normal 2-view chest radiography. [facility] SITE ID: [id number]
--- NOTE | 2017-10-18 20:53 | XRAY Report ---
EXAM: CHEST RADIOGRAPHY EXAM DATE: 10/18/2017 08:22 PM. CLINICAL HISTORY: Dyspnea. Cough. COMPARISON: 10/01/2017. TECHNIQUE: 2 views. FINDINGS: Lungs/Pleura: No focal opacities evident. Clearing of previous left base infiltrate. No pleural effus ion. No pneumothorax. Normal volumes. Mediastinum: Heart and mediastinal contours are unremarkable. Other: No compression fractures. IMPRESSION: Normal 2-view chest radiography. [facility] Referring Provider Line: [phone] SITE ID: [id number]
[2017-10-18 21:26] VITALS: BP 131/72
== END 2017-10-18 21:45 | disposition home or self-care (01) ==
LOC: ED 19:07
DX: R05 Cough (principal); R06.02 Shortness of breath; J34.89 Other specified disorders of nose and nasal sinuses; H81.09 Meniere's disease, unspecified ear; K21.9 Gastro-esophageal reflux disease without esophagitis; R03.0 Elevated blood-pressure reading, without diagnosis of hypertension
CPT/HCPCS: 36415; 71020; 80053; 83690; 84484; 85025; 87275; 87276; 93005; 94640; 96360; 99283; J7613

== ENCOUNTER 2017-11-15 13:03 | Outpatient (CLI) | payer MEDICARE, OTHER | END 2017-11-15 13:04 | disposition home or self-care (01) | LOC: SC 13:03 | PROVIDERS: ATTEND Nurse Practitioner Family | DX: G47.33 Obstructive sleep apnea (adult) (pediatric) (principal); G47.00 Insomnia, unspecified | CPT/HCPCS: 99214; G0463; 99212 ==

== ENCOUNTER 2018-01-17 13:23 | Outpatient (CLI) | payer MEDICARE, OTHER | END 2018-01-17 13:24 | disposition home or self-care (01) | LOC: SC 13:23 | PROVIDERS: ATTEND Nurse Practitioner Family | DX: G47.33 Obstructive sleep apnea (adult) (pediatric) (principal) | CPT/HCPCS: 99214; G0463; 99212 ==

== ENCOUNTER 2018-04-13 08:47 | Outpatient (CLI) | payer MEDICARE, OTHER ==
--- NOTE | 2018-04-13 13:54 | CT Report ---
Procedure Date: 04/13/2018 Accession Number: [id number] / [id number] Procedure: CT - Chest W/O CPT Code: FULL RESULT: EXAM: Chest W/O DATE: 04/13/2018 10:08 AM CLINICAL HISTORY: ASTHMA, SLEEP APNEA COMPARISON: 10/01/2017 TECHNIQUE: Routine helical CT imaging was performed through the chest. IV contrast: None. Reconstructions: Coronal and sagittal. In accordance with CT protocol optimization, one or more of the following dose reduction techniques were utilized for this exam: automated exposure control, adjustment of mA and/or KV based on patient size, or use of iterative reconstructive technique. FINDINGS: Lungs/Pleura: No nodules, bronchial thickening, consolidation, or edema. Pulmonary vasculature is normal. No pericardial or pleural effusion. No pneumothorax. Mediastinum: Normal. No adenopathy or masses. The heart and great vessels are normal. Bones: Unremarkable. Visualized Abdomen: Unremarkable. Other: None. IMPRESSION: Normal chest CT. [facility]
[2018-04-13] MEDS ORDERED: ALBUTEROL NEB 2.5 MG/3 ML INH PRN (16:30)
== END 2018-04-13 08:48 | disposition home or self-care (01) ==
LOC: DI 08:47
PROVIDERS: ATTEND Internal Medicine
DX: J45.909 Unspecified asthma, uncomplicated (principal); G47.30 Sleep apnea, unspecified
CPT/HCPCS: 71250; 94060; 94729

== ENCOUNTER 2018-06-06 13:17 | Outpatient (CLI) | payer MEDICARE, OTHER | END 2018-06-06 13:18 | disposition home or self-care (01) | LOC: SC 13:17 | PROVIDERS: ATTEND Nurse Practitioner Family | DX: G47.33 Obstructive sleep apnea (adult) (pediatric) (principal) | CPT/HCPCS: 99214; G0463; 99212 ==

== ENCOUNTER 2018-07-05 11:16 | Outpatient (CLI) | payer MEDICARE, OTHER | END 2018-07-05 11:17 | disposition home or self-care (01) | LOC: SC 11:16 | PROVIDERS: ATTEND Nurse Practitioner Family | DX: G47.33 Obstructive sleep apnea (adult) (pediatric) (principal) | CPT/HCPCS: 99214; G0463; 99212 ==

== ENCOUNTER 2018-09-13 10:14 | Outpatient (CLI) | payer MEDICARE, OTHER | END 2018-09-13 10:15 | disposition home or self-care (01) | LOC: SC 10:14 | PROVIDERS: ATTEND Nurse Practitioner Family | DX: G47.33 Obstructive sleep apnea (adult) (pediatric) (principal) | CPT/HCPCS: 99214; G0463; 99212 ==

== ENCOUNTER 2018-10-15 11:00 | Outpatient (CLI) | payer MEDICARE, OTHER | END 2018-10-15 11:01 | disposition home or self-care (01) | LOC: SC 11:00 | PROVIDERS: ATTEND Nurse Practitioner Family | DX: G47.33 Obstructive sleep apnea (adult) (pediatric) (principal) | CPT/HCPCS: 99214; G0463; 99212 ==

== ENCOUNTER 2019-01-11 13:42 | Outpatient (CLI) | payer MEDICARE, OTHER ==
[2019-01-11] MEDS ORDERED: IOVERSOL 320 50 ML VIAL ONE (13:54)
[2019-01-11] MEDS ORDERED: IOPAMIDOL-300 100 ML VIAL ONE (13:54)
[2019-01-11] MEDS ORDERED: IOPAMIDOL-300 100 ML VIAL IVP ONE (15:24)
[2019-01-11] MEDS ORDERED: IOVERSOL 320 50 ML VIAL PO ONE (15:25)
--- NOTE | 2019-01-11 16:01 | CT Report ---
Reason: UNSPECIFIED ABDOMINAL PAIN Procedure Date: 01/11/2019 Accession Number: [id number] / [id number] Procedure: CT - Abdomen/Pelvis W CPT Code: FULL RESULT: EXAM: CT ABDOMEN AND PELVIS EXAM DATE: 01/11/2019 02:59 PM. CLINICAL HISTORY: Unspecified abdominal pain. COMPARISONS: ABDOMEN/PELVIS W/O 02/13/2017 1:30 PM. TECHNIQUE: Routine helical CT imaging was performed through the abdomen and pelvis. IV contrast: ISOVUE 300 100mL. Enteric contrast: Yes. Reconstructions: Coronal and sagittal. In accordance with CT protocol optimization, one or more of the following dose reduction techniques were utilized for this exam: automated exposure control, adjustment of mA and/or KV based on patient size, or use of iterative reconstructive technique. FINDINGS: Lung Bases: Unremarkable. Liver: Normal. No masses. Gallbladder/Bile Ducts: Unremarkable. Spleen: Normal. Pancreas: Normal. Adrenal Glands: Normal. Kidneys: Normal. No masses or hydronephrosis. Peritoneal Cavity/Bowel: Normal. No free fluid, free air or adenopathy. No masses or acute inflammatory process. The appendix is not specifically visualized. Pelvic Organs: Normal. The bladder and visualized pelvic organs are within normal limits. Vasculature: No aneurysms or other significant abnormality. Bones: No significant abnormality. Other: Stable small hiatal hernia. IMPRESSION: Stable small hiatal hernia, otherwise normal abdominal pelvic CT. [facility]
--- NOTE | 2019-01-11 16:07 | CT Report ---
Reason: UNSPECIFIED ABDOMINAL PAIN Procedure Date: 01/11/2019 Accession Number: [id number] / [id number] Procedure: CT - CHEST W CPT Code: FULL RESULT: EXAM: CT CHEST EXAM DATE: 01/11/2019 02:59 PM. CLINICAL HISTORY: Unspecified abdominal pain. COMPARISONS: Chest with 01/11/2019 2:59 PM. Chest without contrast 04/13/2018 10:03 AM. TECHNIQUE: Routine helical CT imaging was performed through the chest. IV contrast: None. Reconstructions: Coronal and sagittal. In accordance with CT protocol optimization, one or more of the following dose reduction techniques were utilized for this exam: automated exposure control, adjustment of mA and/or KV based on patient size, or use of iterative reconstructive technique. FINDINGS: Lungs/Pleura: No nodules, bronchial thickening, consolidation, or edema. Pulmonary vasculature is normal. No pericardial or pleural effusion. No pneumothorax. Mediastinum: Moderate coronary artery calcium is noted of the left anterior descending coronary artery. No adenopathy or masses. The heart and great vessels are otherwise normal. Bones: Unremarkable. Visualized Abdomen: Unremarkable. Other: Small hiatal hernia. IMPRESSION: 1. Moderate coronary artery calcium of the left anterior descending coronary artery. 2. Small hiatal hernia. [facility]
== END 2019-01-11 13:43 | disposition home or self-care (01) ==
LOC: DI 13:42
PROVIDERS: ATTEND Physician Assistant
DX: R10.9 Unspecified abdominal pain (principal); K44.9 Diaphragmatic hernia without obstruction or gangrene; I25.10 Atherosclerotic heart disease of native coronary artery without angina pectoris
CPT/HCPCS: 36415; 71260; 74177; 82565; Q9967

== ENCOUNTER 2019-01-24 10:12 | Outpatient (CLI) | payer MEDICARE, OTHER ==
--- NOTE | 2019-01-24 11:26 | Mammography Report ---
Reason: UNSPECIFIED LUMP IN THE RIGHT BREAST, UPPER OUTER Procedure Date: 01/24/2019 Accession Number: [id number] / [id number] Procedure: [facility] - Diagnostic Dig Bilat CPT Code: FULL RESULT: EXAM: Diagnostic Dig Bilat DATE: 01/24/2019 10:59 AM CLINICAL HISTORY: Diagnostic examination. Palpable lump in the right breast upper outer quadrant. No reported risk factors. TECHNIQUE: Bilateral CC and MLO views as well as a right ML view were obtained. COMPARISON: 08/03/2015 and 07/20/2015. FINDINGS: The breasts demonstrate heterogeneously dense fibroglandular parenchyma bilaterally. There are bilateral typically benign coarse calcifications. No suspicious mass, architectural distortion or calcifications are seen. IMPRESSION: Benign findings RECOMMENDATION: Recommend routine annual Screening mammography unless otherwise clinically indicated. BIRADS CATEGORY 2: Benign findings STANDARD QUALIFYING STATEMENTS: 1. This examination was not reviewed with the aid of Computer-Aided Detection (CAD). 2. A negative or benign imaging report should not delay biopsy if clinically suspicious findings are present. Consider surgical consultation if warrented. More than 5% of cancers are not identified by imaging. 3. Dense breasts may obscure an underlying neoplasm. 4. This examination was reviewed with the aid of 3D imaging (tomography).
== END 2019-01-24 10:13 | disposition home or self-care (01) ==
LOC: DI 10:12
PROVIDERS: ATTEND Physician Assistant
DX: N63.11 Unspecified lump in the right breast, upper outer quadrant (principal)
CPT/HCPCS: 77066

== ENCOUNTER 2019-07-08 13:18 | Outpatient (CLI) | payer MEDICARE, OTHER ==
--- NOTE | 2019-07-09 09:05 | CT Report ---
Reason: HEADACHE Procedure Date: 07/08/2019 Accession Number: [id number] / [id number] Procedure: CT - HEAD WO CPT Code: FULL RESULT: EXAM: CT HEAD EXAM DATE: 07/08/2019 02:17 PM. CLINICAL HISTORY: HEADACHE. COMPARISON: BRAIN W/O 04/24/2013 8:55 AM. TECHNIQUE: Multiaxial CT images were obtained from the foramen magnum to the vertex. Reformats: Sagittal and coronal. IV contrast: None. In accordance with CT protocol optimization, one or more of the following dose reduction techniques were utilized for this exam: automated exposure control, adjustment of mA and/or KV based on patient size, or use of iterative reconstructive technique. FINDINGS: Parenchyma: No intraparenchymal hemorrhage. No evidence of mass, midline shift, or CT findings of infarction. Richard-white differentiation is distinct. Extraaxial Spaces: Normal for age. No subdural or epidural collections identified. Ventricles: Normal in size and position. Sinuses and Orbits: Right sphenoid sinus retention cyst. Bones: No evidence of fracture or calvarial defect. Other: Clear mastoid air cells and middle ear cavities. IMPRESSION: Normal head CT except for sphenoid sinus retention cyst. [facility]
== END 2019-07-08 13:19 | disposition home or self-care (01) ==
LOC: DI 13:18
PROVIDERS: ATTEND Physician Assistant
DX: J34.1 Cyst and mucocele of nose and nasal sinus (principal); R51 Headache
CPT/HCPCS: 70450

== ENCOUNTER 2019-10-29 10:50 | Outpatient (CLI) | payer MEDICARE, OTHER ==
[2019-10-29 11:44] VITALS: BP 112/68
--- NOTE | 2019-10-29 11:44 | SLEEP CARE CONSULTATION ---
Information from patient questionnaire entered by Demetria Alvarado. I have reviewed and concur with the information entered by Demetria Alvarado. This document represents the service I personally performed and the decisions made by me, Chastity Pritchett, RN, MSN, [employer]. History of Present Illness Previous diagnosis: Mild, Obstructive Sleep Apnea-Hypopnea Syndrome AHI: 9.8 Reason for follow up: annual Equipment type: CPAP Equipment obtained from: [facility] Mask style: Nasal (Air Fit N20) Mask brand: Resmed Backup mask available: Yes Last cushion change: 3 weeks ago Prior sleep studies: Yes CPAP Compliance Data - Data Reviewed with Patient Average duration of nightly device use: 5H 18M Compliance rate %: 61 (use reduced due to skull pain , no etiology except son diagnosed with cancer) Current pressure setting (cmH2O): 8 Humidity settin Heated hose settin Average residual AHI: 2.5 Subjective Patient concerns: reports: condensation in mask/hose (few times a week), dry mouth, nose, throat (a few times a week). denies: aerophagia, mask discomfort, air blowing in eyes, mask leak noise, nasal congestion, epistaxis Observed to snore while using device: No (single sleeps alone) Current pressure setting perceived as: comfortable On therapy, patient: reports: sleeping better, awakening more refreshed, being more awake and alert during the day, more rested overall. denies: drowsiness while driving Initial [place] Sleepiness Scale score: 6 Current [place] Sleepiness Scale score: 7 Allergies and Home Medications Known drug allergies: Yes (see list ) Home medication list reviewed: Yes Allergy and home medication list: Medication Name (generic/name brand) Strength & Dosage Multi thymis Three twice daily Vitamin D 5000IU daily Vitamin C Packet one daily Saccharomyces Boullardi Two twice daily Super Enzymes One twice daily Hydrocortisone 5mg once daily Quercetin One twice daily [place] phosphoricum 1 capsule daily Ashwaganda 2 capsules 2 times a day [place] 2 capsules 2 times a day Review of Systems Review of systems same as previous: No (body aches and skull pain after son's diagnosis of cancer / better now) Physical Exam Blood Pressure: 112/68 Cuff size: long Heart Rate: 79 O2 Saturation: 99 Height: 5 ft 6 in Weight: 186 lb 3.2 oz Weight change since last visit: gained 4 pounds Body Mass Index: 30.0 BMI Classification: Obesity Class 1 Impression and Plan 1. Obstructive Sleep Apnea-Hypopnea Syndrome, mild, with fair treatment compliance and good apnea control. On CPAP therapy, the patient has better sleep quality and is more rested overall. Her compliance fell after son's diagnosis of cancer and her physical response of body pain, especially of the skull making it uncomfortable to use CPAP. She has since had reduced pain with sons' progress and now able to use use CPAP well the past 2 months. For her gastrointestinal concerns of burping and epigastric pressure, patient advised to follow up with PCP as advised by her language path to seek a endoscopy evaluation. She is aware of 911 guidelines for chest pressure. Patient has gained weight and voiced frustration. She is having difficulty losing weight. Thus I discussed the option of using a diet consultation and discussing a referral or weight watchers use with her PCP. I also explained how weight loss and gain can affect her apnea severity and CPAP pressure. Symptoms to report for pressure adjustment discussed. To reduce oral dryness and condensation, I again reviewed operations on sample device and how and why to change settings. Printed directions given as noted on Web site. Patient's apnea severity and rationale for treatment to reduce apnea, improve sleep quality and reduce cardiovascular and cerebrovascular events was reviewed. I also reviewed the benefit of consistent device use of CPAP for gastric reflux * Continue CPAP pressure at 8cmH2O * Adjust humidity and heated hose as directed. * Notify me if snoring with mask or feeling that the pressure is too much or too little * Attempt to lose weight * Follow up with PCP re weight loss. * Call this office if any problems using CPAP * Return for follow up in 6months , or sooner if concerns arise Time Spent with Patient (minutes): 37 I spent 100% of this visit face to face with the patient with greater than 50% of this was spent time counseling the patient and coordination of care.
== END 2019-10-29 10:51 | disposition home or self-care (01) ==
LOC: SC 10:50
PROVIDERS: ATTEND Nurse Practitioner Family
DX: G47.33 Obstructive sleep apnea (adult) (pediatric) (principal)
CPT/HCPCS: 99214; G0463; 99212

== ENCOUNTER 2019-12-03 01:13 | Outpatient (CLI) | payer MEDICARE, OTHER | END 2019-12-03 01:14 | disposition critical access hospital (66) | LOC: EMS 01:13 | PROVIDERS: ATTEND Surgery | DX: R10.13 Epigastric pain (principal) | CPT/HCPCS: A0425; A0427 ==

== ENCOUNTER 2019-12-03 01:40 | Emergency (ER) | payer MEDICARE, OTHER ==
--- NOTE | 2019-12-03 01:51 | ED Physician Documentation ---
History of Present Illness - Stated complaint Stated Complaint: CP - Chief complaint Chief Complaint: General - History obtained from History obtained from: Patient (the patient is a very pleasant 79 Y/O F who p/w a cc of chest pain and GERD. Patient reports she is scheduled to have an EGD on 12/04/19. she woke from sleep with chest pain without syncope, denies chest pain currently, denies a hx of mi/pe/dvt. denies calf pain, recent hospitilization or any hx of hypercoaguability. patient states she thinks this is her esophagus causing her pain.) Review of Systems Constitutional: reports: Reviewed and negative Eyes: reports: Reviewed and negative Ears: reports: Reviewed and negative Nose: reports: Reviewed and negative Throat: reports: Reviewed and negative Cardiac: reports: Chest pain / pressure Respiratory: reports: Reviewed and negative GI: reports: Nausea, Other (GERD) : reports: Reviewed and negative Skin: reports: Reviewed and negative Musculoskeletal: reports: Reviewed and negative Neurologic: reports: Reviewed and negative Psychiatric: reports: Reviewed and negative Endocrine: reports: Reviewed and negative Immunocompromised: reports: Reviewed and negative PD PAST MEDICAL HISTORY - Past Medical History Cardiovascular: None Respiratory: None Endocrine/Autoimmune: None GI: GERD 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 : None HEENT: None Psych: None Musculoskeletal: None Derm: None - Past Surgical History Past Surgical History: Yes General: Appendectomy HEENT: Tonsil/Adenoidectomy - Present Medications Home Medications: Ambulatory Orders Medication Instructions Recorded Confirmed Albuterol Sulfate [Proventil Hfa 1 - 2 puffs IH Q4H PRN #1 10/18/17 Inhaler] hfa.aer.ad - Allergies Allergies/Adverse Reactions: Allergies Allergy/AdvReac Type Severity Reaction Status Date / Time Antihistamines - Alkylamine Allergy Rash Verified 10/18/17 19:16 Penicillins Allergy unknown Verified 10/18/17 19:16 oxycodone AdvReac Respiratory Verified 10/18/17 19:20 propofol AdvReac Dizziness Verified 10/18/17 19:21 - Social History Does the pt smoke?: No Smoking Status: Never smoker Does the pt drink ETOH?: Yes Does the pt have substance abuse?: No - Immunizations Immunizations are current?: Yes - POLST Patient has POLST: Yes PD ED PE NORMAL - Vitals Vital signs reviewed: Yes - General General: Alert and oriented X 3, No acute distress, Well developed/nourished - HEENT HEENT: Atraumatic, PERRL, EOMI, Ears normal, Moist mucous membranes, Pharynx benign, Dentition benign - Neck Neck: Supple, no meningeal sign, No bony TTP, No adenopathy, Thyroid normal, No JVD, No bruit - Cardiac Cardiac: RRR, No murmur, No rub, Strong equal pulses - Respiratory Respiratory: No respiratory distress, Clear bilaterally - Abdomen Abdomen: Normal bowel sounds, Soft, Non tender, Non distended, No organomegaly - Back Back: No CVA TTP, No spinal TTP - Derm Derm: Normal color, Warm and dry, No rash - Extremities Extremities: No deformity, No tenderness to palpate, Normal ROM s pain, No edema, No calf tenderness / cord - Neuro Neuro: Alert and oriented X 3, darkroom technician 2-12 intact, No motor deficit, No sensory deficit, Normal speech - Psych Psych: Normal mood, Normal affect Results - Vitals Vitals: Vital Signs - 24 hr 12/03/19 12/03/19 01:41 03:05 Temperature 36.9 C Heart Rate 74 72 Respiratory 16 19 Rate Blood Pressure 185/88 H 140/81 H O2 Saturation 94 94 Oxygen O2 Source Room air - EKG (time done) 01 42 Rate: Rate (enter#) (75) Rhythm: NSR University: LAD Intervals: Normal RI, QRS normal QRS: Normal Ischemia: Normal ST segments 03 25 Rate: Rate (enter#) (69) Rhythm: NSR University: LAD Intervals: Normal RI, QRS normal QRS: Normal Ischemia: Normal ST segments - Labs Labs: Laboratory Tests 12/03/19 12/03/19 12/03/19 02:21 02:21 02:21 WBC 4.7 L RBC 4.02 L Hgb 12.8 Hct 38.8 MCV 96.5 MCH 31.8 H MCHC 33.0 RDW 12.3 Plt Count 251 MPV 8.7 Neut # (Auto) 1.8 Lymph # (Auto) 2.0 Cobb # (Auto) 0.7 Eos # (Auto) 0.2 Baso # (Auto) 0.1 Absolute Nucleated RBC 0.00 Nucleated RBC % 0.0 PT 10.4 INR 0.9 APTT 29.8 Sodium 136 Potassium 3.8 Chloride 103 Carbon Dioxide 23 Anion Gap 10.0 BUN 16 Creatinine 0.8 Estimated GFR (MDRD) 70 L Glucose 110 H Calcium 8.9 Total Bilirubin 0.8 AST 21 ALT 23 Alkaline Phosphatase 49 Troponin I High Sens B-Natriuretic Peptide Total Protein 6.6 L Albumin 3.8 Globulin 2.8 Albumin/Globulin Ratio 1.4 Lipase 34 Urine Color Urine Clarity Urine pH Ur Specific [place] Urine Protein Urine Glucose (UA) Urine Ketones Urine Occult Blood Urine Nitrite Urine Bilirubin Urine Urobilinogen Ur Leukocyte Esterase Ur Microscopic Review Urine Culture Comments 12/03/19 12/03/19 12/03/19 02:21 02:21 02:30 WBC RBC Hgb Hct MCV MCH MCHC RDW Plt Count MPV Neut # (Auto) Lymph # (Auto) Cobb # (Auto) Eos # (Auto) Baso # (Auto) Absolute Nucleated RBC Nucleated RBC % PT INR APTT Sodium Potassium Chloride Carbon Dioxide Anion Gap BUN Creatinine Estimated GFR (MDRD) Glucose Calcium Total Bilirubin AST ALT Alkaline Phosphatase Troponin I High Sens 3.6 B-Natriuretic Peptide 34 Total Protein Albumin Globulin Albumin/Globulin Ratio Lipase Urine Color YELLOW Urine Clarity CLEAR Urine pH 5.5 Ur Specific [place] 1.010 Urine Protein NEGATIVE Urine Glucose (UA) NEGATIVE Urine Ketones NEGATIVE Urine Occult Blood NEGATIVE Urine Nitrite NEGATIVE Urine Bilirubin NEGATIVE Urine Urobilinogen 0.2 (NORMAL) Ur Leukocyte Esterase NEGATIVE Ur Microscopic Review NOT INDICATED Urine Culture Comments NOT INDICATED 12/03/19 03:37 WBC RBC Hgb Hct MCV MCH MCHC RDW Plt Count MPV Neut # (Auto) Lymph # (Auto) Cobb # (Auto) Eos # (Auto) Baso # (Auto) Absolute Nucleated RBC Nucleated RBC % PT INR APTT Sodium Potassium Chloride Carbon Dioxide Anion Gap BUN Creatinine Estimated GFR (MDRD) Glucose Calcium Total Bilirubin AST ALT Alkaline Phosphatase Troponin I High Sens 3.8 B-Natriuretic Peptide Total Protein Albumin Globulin Albumin/Globulin Ratio Lipase Urine Color Urine Clarity Urine pH Ur Specific [place] Urine Protein Urine Glucose (UA) Urine Ketones Urine Occult Blood Urine Nitrite Urine Bilirubin Urine Urobilinogen Ur Leukocyte Esterase Ur Microscopic Review Urine Culture Comments PD MEDICAL DECISION MAKING - ED course Complexity details: re-evaluated patient, d/w patient (EKG neg x 2, trop neg x 2. Offered admission for stress test. Patient wants to go home. Patient had Medical decision making capabilty and capacity. f/u today w pcp.) Departure - Departure Disposition: Home, Self Care Clinical Impression: Chest pain Qualifiers: Chest pain type: other chest pain Qualified Code(s): R07.89 - Other chest pain Condition: Good Instructions: ED Chest Pain Atypical Unkn Cause Follow-Up: Mounika Hughes PA [Primary Care Provider] - 12/03/19
[2019-12-03] MEDS ORDERED: ASPIRIN 325 MG TABLET PO STA (02:00)
[2019-12-03] MEDS ORDERED: SODIUM CHLORIDE 0.9% 1,000 ML IV ONE (02:00)
[2019-12-03] MEDS ORDERED: NITROGLYCERIN SL 0.4 MG TABLET SL PRN (02:00)
[2019-12-03] MEDS ORDERED: GI COCKTAIL 120 ML BOTTLE PO ONE (02:00)
[2019-12-03] MEDS ORDERED: MAG HYDROX/AL HYDROX/SIMETH 30 ML UDC PO STA (02:12)
[2019-12-03] MEDS ORDERED: LIDOCAINE VISCOUS 2% 100 ML BOTTLE MM STA (02:13)
[2019-12-03] MEDS ORDERED: LIDOCAINE JELLY 2% 5 ML TUBE TOP STA (02:17)
[2019-12-03 02:28] LABS: BASOPHILS # (AUTO) 0.1 10^3/uL (0.0-0.1); BASOPHILS % (AUTO) 1.3 %; EOSINOPHILS # (AUTO) 0.2 10^3/uL (0.0-0.7); EOSINOPHILS % (AUTO) 4.7 %; HGB - HEMOGLOBIN 12.8 g/dL (12.0-16.0); LYMPHOCYTES % (AUTO) 41.3 %; MEAN CORPUSCULAR HEMOGLOBIN 31.8 pg (27.0-31.0); MEAN CORPUSCULAR VOLUME 96.5 fL (81.0-99.0); MEAN PLATELET VOLUME 8.7 fL (7.9-10.8); MONOCYTES # (AUTO) 0.7 10^3/uL (0.0-1.0); MONOCYTES % (AUTO) 13.8 %; NEUTROPHILS # (AUTO) 1.8 10^3/uL (1.5-6.6); NEUTROPHILS % (AUTO) 38.7 %; PLT - PLATELET COUNT 251 10^3/uL (130-450); RED BLOOD COUNT 4.02 10^6/uL (4.20-5.40); RED CELL DISTRIBUTION WIDTH 12.3 % (12.0-15.0); WHITE BLOOD COUNT 4.7 x10^3/uL (4.8-10.8)
[2019-12-03 02:35] LABS: INR 0.9 (0.8-1.2); PT - PROTHROMBIN TIME 10.4 secs (9.9-12.6)
[2019-12-03 02:41] LABS: ALBUMIN 3.8 g/dL (3.2-5.5); ALBUMIN/GLOBULIN RATIO 1.4 (1.0-2.2); BILIRUBIN,TOTAL 0.8 mg/dL (0.2-1.0); CALCIUM 8.9 mg/dL (8.5-10.3); CREATININE 0.8 mg/dL (0.4-1.0); TOTAL PROTEIN 6.6 g/dL (6.7-8.2)
[2019-12-03 02:42] LABS: PARTIAL THROMBOPLASTIN TIME 29.8 secs (24.9-33.3)
--- NOTE | 2019-12-03 02:53 | XRAY Report ---
Reason: CP Procedure Date: 12/03/2019 Accession Number: [id number] / [id number] Procedure: XR - Chest 1 View X-Ray CPT Code: 86587 Final Report FULL RESULT: EXAM: CHEST RADIOGRAPHY EXAM DATE: 12/03/2019 02:13 AM. CLINICAL HISTORY: Chest pain COMPARISON: CHEST 2 VIEW PA/LAT 10/18/2017 8:06 PM CHEST W/ 01/11/2019 2:59 PM ABDOMEN/PELVIS W01/11/2019 2:59 PM. TECHNIQUE: 1 view. FINDINGS: Lungs/Pleura: No focal opacities evident. No pleural effusion. No pneumothorax. Mediastinum: Within exam limitations, the cardiomediastinal contour is normal. Other: None. IMPRESSION: Normal single view chest. RADIA
[2019-12-03 03:13] LABS: BILIRUBIN,URINE NEGATIVE (NEGATIVE); GLUCOSE, URINE (UA) NEGATIVE (NEGATIVE); KETONES,URINE (UA) NEGATIVE (NEGATIVE); LEUKOCYTE ESTERASE, URINE NEGATIVE (NEGATIVE); NITRITE,URINE NEGATIVE (NEGATIVE); OCCULT BLOOD,URINE NEGATIVE (NEGATIVE); PH,URINE 5.5 PH (5.0-7.5); PROTEIN,URINE NEGATIVE (NEGATIVE); UROBILINOGEN,URINE 0.2 (NORMAL) E.U./dL (NORMAL)
[2019-12-03 03:15] LABS: CLARITY,URINE CLEAR (CLEAR)
[2019-12-03 04:34] VITALS: BP 150/84
== END 2019-12-03 04:33 | disposition home or self-care (01) ==
LOC: EDUNIT# → ED 01:40
DX: R07.9 Chest pain, unspecified (principal)
CPT/HCPCS: 36415; 71045; 80053; 81003; 83690; 83880; 84484; 85025; 85610; 85730; 93005; 99283; 99284; A9270; 81001; 87086

== ENCOUNTER 2020-02-27 10:49 | Outpatient (CLI) | payer MEDICARE, OTHER ==
--- NOTE | 2020-02-27 10:21 | SLEEP CARE CONSULTATION ---
Information from patient questionnaire entered by Demetria Alvarado. I have reviewed and concur with the information entered by Demetria Alvarado. This document represents the service I personally performed and the decisions made by me, Chastity Pritchett, RN, MSN, [employer]. History of Present Illness Service Date and Time: 02/27/2020929 Previous diagnosis: Mild, Obstructive Sleep Apnea-Hypopnea Syndrome AHI: 9.8 Reason for follow up: other (4 month with pressure questions) Equipment type: CPAP Equipment obtained from: [employer] (wonderful service) Mask style: Nasal (N20) Mask brand: Resmed Backup mask available: Yes (old mask) Last cushion change: today HPI additional information: Patient voices concerns about future pressure needs with recurrent pneumonia and wonders if she can change her pressure. CPAP Compliance Data - Data Reviewed with Patient Average duration of nightly device use: 5h 50m Compliance rate %: 86 Current pressure setting (cmH2O): 8 Average residual AHI: 2.4 Subjective Patient concerns: reports: condensation in mask/hose (in mask in middle of night when awakens to use the bathroom most nights), dry mouth, nose, throat (mouth occasionally when opens -chin strap did not work), other (lately it is harder to put water reservoir back into CPAP.). denies: aerophagia, mask discomfort, air blowing in eyes, mask leak noise, nasal congestion, epistaxis Observed to snore while using device: No Current pressure setting perceived as: too low (slightly too low initially) On therapy, patient: reports: sleeping better, awakening more refreshed, being more awake and alert during the day, more rested overall. denies: drowsiness while driving Initial [place] Sleepiness Scale score: 6 Allergies and Home Medications Home medication list reviewed: No (no changes) Review of Systems Review of systems same as previous: Yes Physical Exam Height: 5 ft 6 in Impression and Plan 1. Obstructive Sleep Apnea-Hypopnea Syndrome, mild, with good treatment compliance and good apnea control. On CPAP therapy, the patient has better sleep quality and is more rested overall. For air hunger at initiation of therapy, I will increase her CPAP pressure to 9cmH20 and have her ramp adjusted for comfort. She is to contact me if air pressure insufficient or not comfortable. For her concerns about needing more air when has recurrent pneumonia and if she could change her pressure, I discussed the importance of working with her sleep provider as to pressure needs with rationale. In addition, I advised her to discuss symptom guidelines with her PCP to obtain earliest possible care to prevent recurrent pneumonia. For water reservoir concerns, I advised patient to contact [facility] as it may needed replaced. In addition, I will have the [facility] contact patient to instruct how to adjust her humidity and heated hose to reduce condensation in mask but reduce occasional oral dryness. Patient feels she has gained weight, no home weight available. Currently patients BMI is 29.7 which means she is overweight at last visit. Obesity increases the risk of apnea, CPAP pressure requirements and overall health risks especially cardiovascular and diabetes. Thus patient is advised to lose weight. Also a diet consultation Patient encouraged to discuss their weight loss goals with their PCP and consider a referral to a dietici Symptoms to report for additional pressure adjustment discussed with rationale discussed.Patient's apnea severity and rationale for treatment to reduce apnea, improve sleep quality and reduce cardiovascular and cerebrovascular events was reviewed. * Change CPAP pressure to 9 cmH2O and adjust ramp to comfort * Check water reservoir for malfunction / replacement * Instruct in adjustment of humidity and heated hose * Notify me if snoring with mask or feeling that the pressure is too much or too little * Attempt to lose weight * Contact PCP re preventative symptom guidelines re pneumonia concerns. * Call this office if any problems using CPAP * Return for follow up in 6 months , or sooner if concerns arise Visit Type: Telehealth Video (to minimize risk of Covid 19 exposure.) Video Type: Fiz Patient Location: Home Location of Provider: Home Patient agrees and consents to this telehealth visit type: Yes Patient agrees to have their insurance billed: Yes Time Spent with Patient (minutes): 25 Provider Statement: I spent 100% of the Telehealth Video Call with the patient with greater than 50% spent counseling the patient and coordination of care.
== END 2020-02-27 10:50 | disposition home or self-care (01) ==
LOC: SC 10:49
PROVIDERS: ATTEND Nurse Practitioner Family
DX: G47.33 Obstructive sleep apnea (adult) (pediatric) (principal)

== ENCOUNTER 2020-08-14 08:00 | Outpatient (CLI) | payer MEDICARE, OTHER ==
[2020-08-14 20:38] LABS: ALBUMIN 4.1 g/dL (3.2-5.5); ALBUMIN/GLOBULIN RATIO 1.2 (1.0-2.2); BILIRUBIN,TOTAL 1.1 mg/dL (0.2-1.0); CALCIUM 9.7 mg/dL (8.5-10.3); TOTAL PROTEIN 7.4 g/dL (6.7-8.2)
== END 2020-08-14 23:59 | disposition home or self-care (01) ==
LOC: LAB.S 08:00
PROVIDERS: ATTEND Physician Assistant
DX: L29.9 Pruritus, unspecified (principal)
CPT/HCPCS: 36415; 80053

== ENCOUNTER 2021-03-24 08:59 | Outpatient (CLI) | payer MEDICARE, OTHER ==
--- NOTE | 2021-03-24 09:18 | SLEEP CARE CONSULTATION ---
Information from patient questionnaire entered by Deepa Menedz. I have reviewed and concur with the information entered by Deepa Mendez. This document represents the service I personally performed and the decisions made by , Sissy Sanderson ARNP. History of Present Illness Service Date and Time: 03/24/2021 0859 Previous diagnosis: Mild, Obstructive Sleep Apnea-Hypopnea Syndrome AHI: 9.8 (in 2017) Reason for follow up: annual (last seen 01/2020) Equipment type: CPAP Equipment obtained from: [employer] (getting supplies as needed, needs to call to elicit orders) Mask style: Nasal Mask brand: Resmed (N20) Backup mask available: Yes (old mask) Last cushion change: 2 weeks ago Prior sleep studies: Yes Year and Where: 2017 - [facility] with [facility] Type of Sleep Study: Polysomnography HPI additional information: AUSTIN DAVID was diagnosed to have mild, AHI 9.8, obstructive sleep apnea- hypopnea syndrome and returns via Telehealth today for CPAP therapy annual follow-up. CPAP Compliance Data - Data Reviewed with Patient Average duration of nightly device use: 6 hr 28 min Compliance rate %: 86 (180 days) Current pressure setting (cmH2O): 8 Humidity settin Average residual AHI: 2.6 Subjective Patient concerns: reports: mask leak noise, dry mouth, nose, throat (dry mouth, adjusts humidity as needed). denies: aerophagia, mask discomfort, air blowing in eyes, condensation in mask/hose, nasal congestion, epistaxis, other Observed to snore while using device: No Current pressure setting perceived as: comfortable On therapy, patient: reports: sleeping better, awakening more refreshed, being more awake and alert during the day, more rested overall, other (no headaches when waking up). denies: drowsiness while driving Initial [place] Sleepiness Scale score: 6 (in 2016) Current [place] Sleepiness Scale score: 4 Allergies and Home Medications Home medication list reviewed: Yes (no changes) Review of Systems Review of systems same as previous: Yes (no changes) Physical Exam Vital signs obtained and entered by: Telehealth visit to reduce exposure during Covid pandemic Height: 5 ft 6 in Impression and Plan 1. Obstructive Sleep Apnea-Hypopnea Syndrome, mild, with good treatment compliance and good apnea control. On CPAP therapy, the patient has better sleep quality and is more rested overall. Patient has significant improvement of her sleep apnea and is very satisfied with her treatment. She gets some dry mouth but states she adjust her humidity and this resolves. She needs some new supplies but needed her annual follow up before she would be able to get [employer] to send these out. She is trying to lose her "Covid weight". She has lost 2 pounds using a program called [employer]. I encouraged her to continue her efforts with losing weight. Patient's apnea severity and rationale for treatment to reduce apnea, improve sleep quality and reduce cardiovascular and cerebrovascular events was reviewed. I also reviewed the benefit of consistent device use of CPAP for arrhythmia, and gastric reflux. * Continue auto CPAP pressure at 8 cmH2O * Notify me if snoring with mask or feeling that the pressure is too much or too little * Continue to try to lose weight * Call this office if any problems using CPAP * Return for follow up in 1 year, or sooner if concerns arise Counseling Topics: Spare mask, Weight loss health impact Visit Type: Telehealth Video Video Type: VSee Patient Location: Home Location of Provider: Office Patient agrees and consents to this telehealth visit type: Yes Time Spent with Patient (minutes): 13 Provider Statement: I spent 100% of the Telehealth Video Call with the patient with greater than 50% spent counseling the patient and coordination of care.
== END 2021-03-24 09:00 | disposition home or self-care (01) ==
LOC: SC 08:59
PROVIDERS: ATTEND Nurse Practitioner Family
DX: G47.33 Obstructive sleep apnea (adult) (pediatric) (principal)

== ENCOUNTER 2022-11-03 14:22 | Outpatient (CLI) | payer MEDICARE, OTHER ==
[2022-11-03 15:09] VITALS: BP 126/64
--- NOTE | 2022-11-03 15:09 | SLEEP CARE CONSULTATION ---
Information from patient questionnaire entered by Ghada Greene. I have reviewed and concur with the information entered by Ghada Greene. This document represents the service I personally performed and the decisions made by me, Sissy Sanderson ARNP. History of Present Illness Service Date and Time: 11/03/2022 1422 Previous diagnosis: Mild, Obstructive Sleep Apnea-Hypopnea Syndrome AHI: 9.8 (in 2017) Reason for follow up: annual (LAST SEEN 02/2021 PT NEEDS SUPPLIES) Equipment type: CPAP (RESMED Airsense 10) Equipment obtained from: [employer] (getting supplies as needed) Mask style: Nasal Backup mask available: No (need to keep old mask when replaced) Prior sleep studies: Yes Year and Where: 2016 - [facility] Type of Sleep Study: Polysomnography HPI additional information: AUSTIN DAVID was diagnosed to have mild, AHI 9.8, obstructive sleep apnea- hypopnea syndrome and returned today for CPAP therapy annual follow-up. Sleep Study - Results Type of Sleep Study: Polysomnography Prior sleep studies: Yes Year and Where: 2016 - [facility] CPAP Compliance Data - Data Reviewed with Patient Average duration of nightly device use: 7 hours 5 minutes Compliance rate %: 93 (30/30 days used) Current pressure setting (cmH2O): 8 Average residual AHI: 3.3 Central apnea: 0.0 Obstructive apnea: 3.2 Subjective Missed days of use due to: reports: illness (skin rashes, couldn't wear mask) Patient concerns: reports: air blowing in eyes, mask leak noise, dry mouth, nose, throat, other (headaches usually when haven't been able to use cpap). denies: aerophagia, mask discomfort, condensation in mask/hose, nasal congestion, epistaxis Observed to snore while using device: No Current pressure setting perceived as: comfortable On therapy, patient: reports: sleeping better, awakening more refreshed, being more awake and alert during the day, more rested overall. denies: drowsiness while driving Initial [place] Sleepiness Scale score: 6 (in 2016) Current [place] Sleepiness Scale score: 9 (11/03/22) Allergies and Home Medications Drug allergies reviewed: Yes (see list in EMR) Home medication list reviewed: Yes (no changes) Review of Systems Review of systems same as previous: Yes (root canal) Physical Exam Vital signs obtained and entered by: GHADA Young MA Blood Pressure: 126/64 (LEFT ARM) Cuff size: regular Heart Rate: 84 O2 Saturation: 96 Height: 5 ft 6 in Weight: 193 lb 3.2 oz Body Mass Index: 31.1 BMI Classification: Obese Impression and Plan 1. Obstructive Sleep Apnea-Hypopnea Syndrome, mild, with good treatment compliance and good apnea control. On CPAP therapy, the patient has better sleep quality and is more rested overall. Patient has had struggles with skin rash on her face and in her mouth that has limited her using her CPAP headgear. She also states she needs supplies because she has not gotten replacements for many months. She has 93% compliance in the last 30 days. I will write for update of s upplies so she may get replacement supplies. Patient's apnea severity and rationale for treatment to reduce apnea, improve sleep quality and reduce cardiovascular and cerebrovascular events was reviewed. I also reviewed the benefit of consistent device use of CPAP for arrhythmia and gastric reflux. 2. Obesity, unspecified. Currently patients BMI is 31.1. Obesity increases the risk of apnea, CPAP pressure requirements and overall health risks especially cardiovascular and diabetes. Thus patient is advised to lose weight. * Continue CPAP pressure at 8 cmH2O * Update supplies * Notify me if snoring with mask or feeling that the pressure is too much or too little * Attempt to lose weight * Call this office if any problems using CPAP * Return for follow up in 1 year, or sooner if concerns arise Counseling Topics: Spare mask, Weight loss health impact Visit Type: In Office Time Spent with Patient (minutes): 23 Provider Statement: I spent 100% of the Face to Face Visit with the patient with greater than 50% spent counseling the patient and coordination of care.
== END 2022-11-03 14:23 | disposition home or self-care (01) ==
LOC: SC 14:22
PROVIDERS: ATTEND Nurse Practitioner Family
DX: G47.33 Obstructive sleep apnea (adult) (pediatric) (principal); E66.9 Obesity, unspecified; Z68.31 Body mass index [BMI] 31.0-31.9, adult
CPT/HCPCS: 99213; G0463; 99212

== ENCOUNTER 2023-02-12 10:28 | Emergency (ER) | payer MEDICARE, OTHER ==
--- NOTE | 2023-02-12 11:09 | XRAY Report ---
PROCEDURE: Chest 1 View X-Ray INDICATIONS: Chest pain TECHNIQUE: One view of the chest was acquired. COMPARISON: 12/03/2019 FINDINGS: Surgical changes and devices: None. Lungs and pleura: No pleural effusions or pneumothorax. Lungs are clear. Mediastinum: Mediastinal contours appear normal. Heart size is normal. Bones and chest wall: No suspicious bony lesions. Overlying soft tissues appear unremarkable. IMPRESSION: No acute cardiopulmonary abnormality Reviewed by: Jason Nicole on 02/12/2023 11:07 AM PDT Approved by: Jason Nicole on 02/12/2023 11:07 AM PDT Station ID: [id number]
[2023-02-12 11:11] LABS: BASOPHILS # (AUTO) 0.1 10^3/uL (0.0-0.1); BASOPHILS % (AUTO) 0.9 %; EOSINOPHILS # (AUTO) 0.1 10^3/uL (0.0-0.7); EOSINOPHILS % (AUTO) 2.4 %; HCT - HEMATOCRIT 42.5 % (37.0-47.0); HGB - HEMOGLOBIN 13.5 g/dL (12.0-16.0); LYMPHOCYTES # (AUTO) 2.4 10^3/uL (1.5-3.5); LYMPHOCYTES % (AUTO) 43.9 %; MEAN CORPUSCULAR HEMOGLOBIN 30.6 pg (27.0-31.0); MEAN CORPUSCULAR HGB CONC 31.8 g/dL (32.0-36.0); MEAN CORPUSCULAR VOLUME 96.4 fL (81.0-99.0); MEAN PLATELET VOLUME 8.6 fL (7.9-10.8); MONOCYTES # (AUTO) 0.4 10^3/uL (0.0-1.0); MONOCYTES % (AUTO) 7.4 %; NEUTROPHILS # (AUTO) 2.5 10^3/uL (1.5-6.6); NEUTROPHILS % (AUTO) 45.2 %; PLT - PLATELET COUNT 289 10^3/uL (130-450); RED BLOOD COUNT 4.41 10^6/uL (4.20-5.40); RED CELL DISTRIBUTION WIDTH 12.2 % (12.0-15.0); WHITE BLOOD COUNT 5.5 x10^3/uL (4.8-10.8)
[2023-02-12 11:19] LABS: ALBUMIN 4.2 g/dL (3.2-5.5); ALBUMIN/GLOBULIN RATIO 1.3 (1.0-2.2); BILIRUBIN,TOTAL 0.5 mg/dL (0.2-1.0); CALCIUM 9.2 mg/dL (8.5-10.3); CREATININE 0.8 mg/dL (0.4-1.0); POTASSIUM 4.3 mmol/L (3.5-5.0); TOTAL PROTEIN 7.4 g/dL (6.7-8.2)
--- NOTE | 2023-02-12 12:43 | ED Physician Documentation ---
PD HPI CHEST PAIN - Stated complaint Stated Complaint: CHEST PX - Chief complaint Chief Complaint: Cardiac - History obtained from History obtained from: Patient, Family - Additional information Additional information: The patient comes to the emergency department chief complaint of episode of chest pain last night. The patient states that she was not exerting herself and the pain began, but she just began to notice a Squeezing/pressure sensation in her upper substernal area that spread toward her right shoulder a bit. She denies any other associated symptoms. No shortness of breath, nausea, d iaphoresis, or lightheadedness. She states that she has a history of vertigo and has seen ENT for this and they had given her some Valium to take as needed. She was beginning to feel a sense of vertigo and so she took the Valium which helped her to feel better and also, seemed to diminish her chest pain. The patient began to feel tired and went to bed and when she woke up this morning, her symptoms were completely gone. She does notice that if she pushes on her superior anterior chest wall, but it does produce some of the discomfort, but otherwise, she denies any other symptoms whatsoever. She states that she did not notice any worsening of the discomfort with exertion or with deep breaths. The patient has a history of angina, which was diagnosed years ago. She has never had an VT. The patient gets most of her care from a [facility] administrator and states she is not on nitroglycerin or anything else for her underlying coronary artery disease. 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 : None HEENT: None Psych: None Musculoskeletal: None Derm: None - Past Surgical History Past Surgical History: Yes General: Appendectomy HEENT: Tonsil/Adenoidectomy - Present Medications Home Medications: Ambulatory Orders Medication Instructions Recorded Confirmed DULoxetine [Cymbalta] 20 mg PO DAILY 02/12/23 02/12/23 Omeprazole Magnesium 20 mg PO DAILY 02/12/23 02/12/23 - Allergies Allergies/Adverse Reactions: Allergies Allergy/AdvReac Type Severity Reaction Status Date / Time Antihistamines - Alkylamine Allergy Rash Verified 10/18/17 19:16 Penicillins Allergy unknown Verified 10/18/17 19:16 oxycodone AdvReac Respiratory Verified 10/18/17 19:20 propofol AdvReac Dizziness Verified 10/18/17 19:21 - Social History Does the pt smoke?: No Smoking Status: Never smoker Does the pt drink ETOH?: Yes Does the pt have substance abuse?: No - Immunizations Immunizations are current?: Yes - POLST Patient has POLST: Yes PD ED PE NORMAL - Vitals Vital signs reviewed: Yes - General General: Alert and oriented X 3, No acute distress, Well developed/nourished - HEENT HEENT: Atraumatic, PERRL, EOMI, Moist mucous membranes - Neck Neck: Supple, no meningeal sign - Cardiac Cardiac: RRR, No murmur, Strong equal pulses - Respiratory Respiratory: No respiratory distress, Clear bilaterally - Abdomen Abdomen: Soft, Non tender, Non distended - Derm Derm: Normal color, Warm and dry, No rash - Extremities Extremities: No deformity, No edema - Neuro Neuro: Alert and oriented X 3 - Psych Psych: Normal mood, Normal affect PD ED PE EXPANDED - Free text exam Free text exam: Chest wall tenderness, bilateral superior anterior chest wall, does not reproduce the pain. Results - Vitals Vitals: Vital Signs - 24 hr 02/12/23 10:41 Temperature 36.9 C Heart Rate 80 Respiratory 16 Rate Blood Pressure 176/77 H O2 Saturation 96 Oxygen O2 Source Room air - EKG (time done) 1040 EKG releavant findings:: EKG personally interpreted by author of this note. Relevant findings are: Rate: Rate (enter#) (65) Rhythm: NSR [place]: Normal Intervals: Normal SD QRS: Normal Ischemia: ST depression (Minimal, lateral leads.) Other comments: Other comments (EKG overall looks great. No findings to indicate STEMI.) Compare to prior EKG: Old EKG unavailable - Labs Labs: Laboratory Tests 02/12/23 02/12/23 02/12/23 10:54 10:54 10:54 WBC 5.5 RBC 4.41 Hgb 13.5 Hct 42.5 MCV 96.4 MCH 30.6 MCHC 31.8 L RDW 12.2 Plt Count 289 MPV 8.6 Neut # (Auto) 2.5 Lymph # (Auto) 2.4 [place] # (Auto) 0.4 Eos # (Auto) 0.1 Baso # (Auto) 0.1 Absolute Nucleated RBC 0.00 Nucleated RBC % 0.0 Sodium 137 Potassium 4.3 Chloride 101 Carbon Dioxide 28 Anion Gap 8.0 BUN 16 Creatinine 0.8 Estimated GFR (MDRD) 69 L Glucose 94 Calcium 9.2 Total Bilirubin 0.5 AST 26 ALT 27 Alkaline Phosphatase 63 Troponin I High Sens 3.9 Total Protein 7.4 Albumin 4.2 Globulin 3.2 Albumin/Globulin Ratio 1.3 Lipase 40 PD Medical Decision Making - ED course Complexity details: reviewed results, re-evaluated patient, considered di fferential, d/w patient, d/w family ED course: The patient was very well-appearing in the emergency department and by now was asymptomatic. Her symptoms had occurred about 17 hours prior to evaluation here in the ED, and her EKG and labs, including CBC, ear abdominal panel, and troponin, were all reviewed by me and found to be unremarkable. I discussed with the patient that it is possible that her pain was caused by angina or it could have been another source of chest pain. The patient has not had an VT as at this point, her troponin is completely normal. I discussed with her that if she begins to have increasing frequency, duration, or intensity of episodes of chest pain, she will need to follow-up with her primary doctor to discuss stress test and referral to cardiology. If she develops any severe chest pain that is unremitting and especially, if associated with shortness of breath, nausea, or diaphoresis, she should return to the emergency department immediately. Patient and daughter expressed understanding. Departure - Departure Disposition: 01 Home, Self Care Clinical Impression: Chest pain Qualifiers: Chest pain type: unspecified Qualified Code(s): R07.9 - Chest pain, unspecified Condition: Stable Instructions: ED Chest Pain Atypical Unkn Cause Comments: Your labs and EKG look good today. There is no evidence of a "heart attack" and it is not exactly clear what has caused your chest pain. However, no emergent condition has been identified today. Given that you have a history of angina, it is important that if you begin to experience increasing intensity, frequency, or duration of episodes of chest pain, that you follow-up with your primary doctor and arrange further evaluation and possibly, cardiology referral. Furthermore, if you experience an episode of chest pain that does not go away in the usual amount of time, or if it is associated with shortness of breath, nausea, or facial sweating, you should return to the emergency department.
[2023-02-12 12:53] VITALS: BP 161/60
== END 2023-02-12 12:53 | disposition home or self-care (01) ==
LOC: ED 10:28
DX: R07.9 Chest pain, unspecified (principal)
CPT/HCPCS: 36415; 80053; 83690; 84484; 85025; 93005; 99283; 99284

== ENCOUNTER 2023-08-31 10:48 | Outpatient (CLI) | payer MEDICARE, OTHER ==
--- NOTE | 2023-08-31 10:50 | SLEEP CARE CONSULTATION ---
Information from patient questionnaire entered by Yan Mckeon. I have reviewed and concur with the information entered by Yan Mckeon. This document represents the service I personally performed and the decisions made by , Sissy Sanderson ARNP. History of Present Illness Service Date and Time: 08/31/2023 1020 Previous diagnosis: Mild, Obstructive Sleep Apnea-Hypopnea Syndrome AHI: 9.8 (in 2016) Reason for follow up: other (10-month follow up - due for a new machine) Equipment type: CPAP (RESMED Airsense 10; 02/2017) Equipment obtained from: [facility] (getting supplies as needed) Mask style: Nasal pillows Backup mask available: Yes Last cushion change: 3 weeks Prior sleep studies: Yes Year and Where: 2016 - [facility] Type of Sleep Study: Polysomnography HPI additional information: AUSTIN DAVID was diagnosed to have mild, AHI 9.8, obstructive sleep apnea- hypopnea syndrome and returns via telehealth visit today for CPAP therapy 10 month follow-up. Sleep Study - Results Type of Sleep Study: Polysomnography Prior sleep studies: Yes Year and Where: 2016 - [facility] CPAP Compliance Data - Data Reviewed with Patient Average duration of nightly device use: 7 h 21 min Compliance rate %: 88 (173/180 days used) Current pressure setting (cmH2O): 8 Average residual AHI: 3.3 Central apnea: 0 Obstructive apnea: 2.9 Hypopnea: 0.1 Average large leak: 0.7 L/min Subjective Missed days of use due to: reports: other (due to noisy cpap; air leaking around mask) Patient concerns: reports: mask leak noise (Only after using a mask for a while - new masks do not make a noise), dry mouth, nose, throat, other (Headache - sometimes with CPAP, sometimes without, but very infrequently). denies: aerophagia, mask discomfort, air blowing in eyes, condensation in mask/hose, nasal congestion, epistaxis Observed to snore while using device: No Current pressure setting perceived as: comfortable On therapy, patient: reports: sleeping better, awakening more refreshed, being more awake and alert during the day, more rested overall. denies: drowsiness while driving Initial [place] Sleepiness Scale score: 6 (in 2015) Current [place] Sleepiness Scale score: 6 (in 2022) Allergies and Home Medications Known drug allergies: Yes (as listed) Drug allergies reviewed: Yes Home medication list reviewed: Yes (stopped many supplements) Allergy and home medication list: Allergies Antihistamines - Alkylamine Allergy (Verified 10/18/17 19:16) Rash Penicillins Allergy (Verified 10/18/17 19:16) unknown oxycodone Adverse Reaction (Verified 10/18/17 19:20) Respiratory propofol Adverse Reaction (Verified 10/18/17 19:21) Dizziness Review of Systems Review of systems same as previous: Yes (no changes) Physical Exam Vital signs obtained and entered by: Sissy Gómez NP Height: 5 ft 6 in Weight: 190 lb (per pt) Body Mass Index: 30.7 BMI Classification: Obese Impression and Plan 1. Obstructive Sleep Apnea-Hypopnea Syndrome, mild, with good treatment compliance and good apnea control. On CPAP therapy, the patient has better sleep quality and is more rested overall. Patient has been having more daytime fatigue and is taking a nap more often during the day. She would like to increase her pressure if possible. The patients pressure will be changed to CPAP 9 cmH20 for patient comfort and increase in daytime fatigue. Patient advised to contact me if pressure change is uncomfortable so that it can be adjusted. Goals for apnea control discussed. Her CPAP was last updated in 2017. The patients CPAP is over 5 years old and of reasonable use. Thus, the CPAP will be updated. A DWO prescription will be made. Compliance guidelines for new device and follow up discussed. Patient's apnea severity and rationale for treatment to reduce apnea, improve sleep quality and reduce cardiovascular and cerebrovascular events was reviewed. I also reviewed the benefit of consistent device use of CPAP for arr hythmia and gastric reflux. 2. Obesity, unspecified. Currently patients BMI is 30.7. Obesity increases the risk of apnea, CPAP pressure requirements and overall health risks especially cardiovascular and diabetes. Thus patient is advised to lose weight. * Update machine * Update supplies * Change auto CPAP pressure to 9 cmH2O * Notify me if snoring with mask or feeling that the pressure is too much or too little * Attempt to lose weight * Call this office if any problems using CPAP * Return for follow up one month after obtaining new device, or sooner if concerns arise Counseling Topics: Spare mask, Weight loss health impact Prescriptions: Auto CPAP, Device supplies Plan: Compliance followup with new CPAP Visit Type: Telehealth Phone Video Type: Doximity Patient Location: Home Location of Provider: Office Patient agrees and consents to this telehealth visit type: Yes Patient agrees to have their insurance billed: Yes Time Spent with Patient (minutes): 20 Provider Statement: I spent 100% of the Telehealth Phone Call with the patient with greater than 50% spent counseling the patient and coordination of care.
== END 2023-08-31 10:49 | disposition home or self-care (01) ==
LOC: SC 10:48
PROVIDERS: ATTEND Nurse Practitioner Family
DX: G47.33 Obstructive sleep apnea (adult) (pediatric) (principal); E66.9 Obesity, unspecified; Z68.30 Body mass index [BMI] 30.0-30.9, adult
CPT/HCPCS: 99442

== ENCOUNTER 2023-11-29 13:41 | Outpatient (CLI) | payer MEDICARE, OTHER ==
[2023-11-29 19:58] LABS: BASOPHILS # (AUTO) 0.1 10^3/uL (0.0-0.1); BASOPHILS % (AUTO) 1.4 %; EOSINOPHILS # (AUTO) 0.1 10^3/uL (0.0-0.7); EOSINOPHILS % (AUTO) 2.6 %; HCT - HEMATOCRIT 41.3 % (37.0-47.0); HGB - HEMOGLOBIN 13.1 g/dL (12.0-16.0); LYMPHOCYTES # (AUTO) 1.9 10^3/uL (1.5-3.5); LYMPHOCYTES % (AUTO) 36.9 %; MEAN CORPUSCULAR HEMOGLOBIN 30.9 pg (27.0-31.0); MEAN CORPUSCULAR HGB CONC 31.7 g/dL (32.0-36.0); MEAN CORPUSCULAR VOLUME 97.4 fL (81.0-99.0); MEAN PLATELET VOLUME 9.3 fL (7.9-10.8); MONOCYTES # (AUTO) 0.7 10^3/uL (0.0-1.0); MONOCYTES % (AUTO) 13.3 %; NEUTROPHILS # (AUTO) 2.3 10^3/uL (1.5-6.6); NEUTROPHILS % (AUTO) 45.6 %; PLT - PLATELET COUNT 293 10^3/uL (130-450); RED BLOOD COUNT 4.24 10^6/uL (4.20-5.40); RED CELL DISTRIBUTION WIDTH 12.2 % (12.0-15.0)
[2023-11-29 20:33] LABS: THYROID STIMULATING HORMONE 0.9 uIU/mL (0.34-5.60)
[2023-11-29 20:39] LABS: FERRITIN 78.7 ng/mL (11.0-306.8)
== END 2023-11-29 13:42 | disposition home or self-care (01) ==
LOC: LAB.S 13:41
PROVIDERS: ATTEND Internal Medicine
DX: K22.70 Barrett's esophagus without dysplasia (principal); Z79.899 Other long term (current) drug therapy
CPT/HCPCS: 36415; 82306; 82607; 82728; 84439; 84443; 85025